=== PATIENT | female | born 1930 | race Caucasian/White ===

== ENCOUNTER 2016-06-28 07:21 | Outpatient (CLI) | payer MEDICARE, OTHER | END 2016-06-28 07:22 | disposition home or self-care (01) | DX: E87.6 Hypokalemia (principal); R25.2 Cramp and spasm ==

== ENCOUNTER 2016-07-23 10:55 | Outpatient (CLI) | payer MEDICARE, OTHER | END 2016-07-23 10:56 | DX: N39.0 Urinary tract infection, site not specified (principal) ==

== ENCOUNTER 2016-12-04 08:00 | Outpatient (CLI) | payer MEDICARE, OTHER | END 2016-12-04 08:01 | disposition home or self-care (01) | LOC: LAB.WCP 08:00 | PROVIDERS: ATTEND Physician Assistant Medical | DX: N39.0 Urinary tract infection, site not specified (principal) | CPT/HCPCS: 87086 ==

== ENCOUNTER 2017-04-28 08:00 | Outpatient (CLI) | payer MEDICARE, OTHER | END 2017-04-28 08:01 | disposition home or self-care (01) | LOC: LAB.R 08:00 | PROVIDERS: ATTEND Physician Assistant Medical | DX: N39.0 Urinary tract infection, site not specified (principal) | CPT/HCPCS: 87086 ==

== ENCOUNTER 2017-05-09 09:30 | Outpatient (CLI) | payer MEDICARE, OTHER | END 2017-05-09 09:31 | disposition home or self-care (01) | LOC: LAB.WCP 09:30 | PROVIDERS: ATTEND Family Medicine | DX: N39.0 Urinary tract infection, site not specified (principal) | CPT/HCPCS: 87086 ==

== ENCOUNTER 2017-05-19 08:00 | Outpatient (CLI) | payer MEDICARE, OTHER | END 2017-05-19 08:01 | disposition home or self-care (01) | LOC: LAB.R 08:00 | PROVIDERS: ATTEND Physician Assistant Medical | DX: N39.0 Urinary tract infection, site not specified (principal) | CPT/HCPCS: 87086 ==

== ENCOUNTER 2017-05-28 08:00 | Outpatient (CLI) | payer MEDICARE, OTHER | END 2017-05-28 08:01 | LOC: LAB.R 08:00 | PROVIDERS: ATTEND Physician Assistant Medical | DX: N39.0 Urinary tract infection, site not specified (principal) | CPT/HCPCS: 87086 ==

== ENCOUNTER 2017-06-09 07:39 | Outpatient (CLI) | payer MEDICARE, OTHER ==
[2017-06-09 12:41] LABS: EOSINOPHILS # (AUTO) 0.1 10^3/uL (0.0-0.7); MONOCYTES # (AUTO) 0.3 10^3/uL (0.0-1.0); NEUTROPHILS # (AUTO) 2.9 10^3/uL (1.5-6.6); PLT - PLATELET COUNT 234 10^3/uL (130-450); WHITE BLOOD COUNT 5.8 x10^3/uL (4.8-10.8)
[2017-06-09 12:50] LABS: BASOPHILS # (AUTO) 0.2 10^3/uL (0.0-0.1); BASOPHILS % (AUTO) 3.1 %; HGB - HEMOGLOBIN 13.9 g/dL (12.0-16.0); LYMPHOCYTES # (AUTO) 2.3 10^3/uL (1.5-3.5); LYMPHOCYTES % (AUTO) 39.5 %; MEAN CORPUSCULAR HEMOGLOBIN 26.8 pg (27.0-31.0); MEAN CORPUSCULAR HGB CONC 35.6 g/dL (32.0-36.0); MEAN CORPUSCULAR VOLUME 75.1 fL (81.0-99.0); MEAN PLATELET VOLUME 7.4 fL (7.9-10.8); MONOCYTES % (AUTO) 5.2 %; NEUTROPHILS % (AUTO) 50.2 %; RED BLOOD COUNT 5.21 10^6/uL (4.20-5.40); RED CELL DISTRIBUTION WIDTH 16.1 % (12.0-15.0)
[2017-06-09 13:04] LABS: ALBUMIN 4.5 g/dL (3.2-5.5); ALBUMIN/GLOBULIN RATIO 1.6 (1.0-2.2); ALKALINE PHOSPHATASE 90 IU/L (42-121); ALT ALANINE AMINOTRANSFERASE 20 IU/L (10-60); AST ASPARTATE AMINOTRANSFERASE 27 IU/L (10-42); BILIRUBIN,TOTAL 0.6 mg/dL (0.2-1.0); BUN - BLOOD UREA NITROGEN 15 mg/dL (6-20); CALCIUM 9.5 mg/dL (8.5-10.3); CARBON DIOXIDE - CO2 27 mmol/L (21-32); CHLORIDE 106 mmol/L (101-111); CHOL/HDL RATIO 3.5 (<4.4); CHOLESTEROL 203 mg/dL; CREATININE 0.7 mg/dL (0.4-1.0); GFR - MDRD 79 (>89); GLUCOSE 108 mg/dL (70-100); HDL CHOLESTEROL 58 mg/dL; LDL CHOLESTEROL,CALCULATED 122 mg/dL; LDL/HDL RATIO 2.1 (<4.4); SODIUM 140 mmol/L (135-145); TOTAL PROTEIN 7.3 g/dL (6.7-8.2); VLDL CHOLESTEROL 23 mg/dL
== END 2017-06-09 07:40 ==
LOC: LAB.WCP 07:39
PROVIDERS: ATTEND Family Medicine
DX: E87.6 Hypokalemia (principal); I73.9 Peripheral vascular disease, unspecified; K21.9 Gastro-esophageal reflux disease without esophagitis; I10 Essential (primary) hypertension; Z79.899 Other long term (current) drug therapy
CPT/HCPCS: 36415; 80053; 80061; 83721; 84443; 85025

== ENCOUNTER 2017-06-25 16:37 | Outpatient (CLI) | payer MEDICARE, OTHER | END 2017-06-25 16:38 | disposition home or self-care (01) | LOC: LAB.R 16:37 | PROVIDERS: ATTEND Physician Assistant Medical | DX: N39.0 Urinary tract infection, site not specified (principal) | CPT/HCPCS: 87086 ==

== ENCOUNTER 2017-07-31 06:37 | Outpatient (CLI) | payer MEDICARE, OTHER | END 2017-07-31 06:38 | disposition home or self-care (01) | LOC: LAB.R 06:37 | PROVIDERS: ATTEND Physician Assistant Medical | DX: N39.0 Urinary tract infection, site not specified (principal) | CPT/HCPCS: 87086 ==

== ENCOUNTER 2017-08-11 08:32 | Outpatient (CLI) | payer MEDICARE, OTHER ==
[2017-08-11 12:39] LABS: CALCIUM 9.2 mg/dL (8.5-10.3); CREATININE 0.7 mg/dL (0.4-1.0)
== END 2017-08-11 08:33 | disposition home or self-care (01) ==
LOC: LAB.WCP 08:32
PROVIDERS: ATTEND Physician Assistant Medical
DX: E87.6 Hypokalemia (principal)
CPT/HCPCS: 36415; 80048

== ENCOUNTER 2017-09-14 11:12 | Emergency (ER) | payer MEDICARE, OTHER ==
[2017-09-14 12:35] LABS: HGB - HEMOGLOBIN 13.4 g/dL (12.0-16.0); MEAN CORPUSCULAR HEMOGLOBIN 27.2 pg (27.0-31.0); MEAN PLATELET VOLUME 7.8 fL (7.9-10.8); RED BLOOD COUNT 4.92 10^6/uL (4.20-5.40); RED CELL DISTRIBUTION WIDTH 15.3 % (12.0-15.0); WHITE BLOOD COUNT 6.5 x10^3/uL (4.8-10.8)
[2017-09-14 12:42] LABS: INR 1.2 (0.8-1.2)
[2017-09-14 12:53] LABS: ALBUMIN 3.9 g/dL (3.2-5.5); ALBUMIN/GLOBULIN RATIO 1.3 (1.0-2.2); BILIRUBIN,TOTAL 0.8 mg/dL (0.2-1.0); CREATININE 0.6 mg/dL (0.4-1.0); TOTAL PROTEIN 6.8 g/dL (6.7-8.2)
--- NOTE | 2017-09-14 13:28 | ED Physician Documentation ---
PD HPI GI BLEED - Stated complaint Stated Complaint: RECTAL BLEED - Chief complaint Chief Complaint: Abd Pain - History obtained from History obtained from: Patient - History of Present Illness Timing - onset: How many days ago (10) Timing - duration: Days (10) Timing - details: Abrupt onset, Still present Associated symptoms: Black/tarry stool (some bloody tint to the diarrhea - having 4-6 watery movements daily.), Diarrhea. No: Vomiting, Fever, Dizzy, Near syncope / syncope Contributing factors: Bad food (she had salad at a restaurant the day prior and feels it was related to that. She and believe it is likely e.coli.). No : Sick contact Improved by: BM Worsened by: Eating Similar symptoms before: Has not had sx before Recently seen: Not recently seen Review of Systems Constitutional: reports: Myalgias. denies: Fever, Chills Nose: denies: Rhinorrhea / runny nose, Congestion Throat: denies: Sore throat Respiratory: denies: Cough GI: reports: Abdominal Pain, Nausea, Diarrhea, Bloody / black stool. denies: Abdominal Swelling, Vomiting, Constipation : denies: Dysuria, Frequency Neurologic: reports: Generalized weakness. 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: Hysterectomy, Oophrectomy HEENT: Tonsil/Adenoidectomy - Present Medications Home Medications: Ambulatory Orders Medication Instructions Recorded Confirmed Diphenoxylate/Atropine [Lomotil] 1 each PO QID PRN #15 tablet 09/14/17 Metronidazole [Flagyl] 500 mg PO BID #14 tablet 09/14/17 Ondansetron Odt [Zofran] 4 mg TL Q6H PRN #15 tablet 09/14/17 Sulfamethox/Trimeth 800/160 1 each PO BID #14 tablet 09/14/17 [Bactrim Ds 800/160] - Allergies Allergies/Adverse Reactions: Allergies Allergy/AdvReac Type Severity Reaction Status Date / Time No Known Drug Allergies Allergy Verified 09/14/17 11:52 - Social History Does the pt smoke?: No Smoking Status: Never smoker Does the pt drink ETOH?: No Substance Use and Type: Marijuana PD ED PE NORMAL - Vitals Vital signs reviewed: Yes - General General: Alert and oriented X 3, No acute distress, Well developed/nourished - HEENT HEENT: Moist mucous membranes, Pharynx benign - Neck Neck: Supple, no meningeal sign, No adenopathy - Cardiac Cardiac: RRR, No murmur - Respiratory Respiratory: No respiratory distress, Clear bilaterally - Abdomen Abdomen: Normal bowel sounds, Soft, Non distended, No organomegaly, Other ( tender left lower abd without guarding nor percussion tenderness. ) - Female Female : Deferred - Rectal Rectal: Deferred - Back Back: No CVA TTP - Derm Derm: Normal color, Warm and dry - Extremities Extremities: No deformity, No tenderness to palpate, Normal ROM s pain, No edema , No calf tenderness / cord - Neuro Neuro: Alert and oriented X 3, No motor deficit, Normal speech Results - Vitals Vitals: Oxygen O2 Source Room air - Labs Labs: Laboratory Tests 09/14/17 09/14/17 09/14/17 11:51 12:20 12:20 WBC 6.5 RBC 4.92 Hgb 13.4 Hct 39.4 MCV 80.0 L MCH 27.2 MCHC 34.0 RDW 15.3 H Plt Count 205 MPV 7.8 L PT 13.0 H INR 1.2 APTT 25.3 Sodium Potassium Chloride Carbon Dioxide Anion Gap BUN Creatinine Estimated GFR (MDRD) Glucose Calcium Total Bilirubin AST ALT Alkaline Phosphatase Total Protein Albumin Globulin Albumin/Globulin Ratio Lipase Blood Type O POSITIVE Antibody Screen NEGATIVE 09/14/17 12:20 WBC RBC Hgb Hct MCV MCH MCHC RDW Plt Count MPV PT INR APTT Sodium 137 Potassium 3.6 Chloride 103 Carbon Dioxide 24 Anion Gap 10.0 BUN 14 Creatinine 0.6 Estimated GFR (MDRD) 95 Glucose 98 Calcium 9.0 Total Bilirubin 0.8 AST 20 ALT 16 Alkaline Phosphatase 99 Total Protein 6.8 Albumin 3.9 Globulin 2.9 Albumin/Globulin Ratio 1.3 Lipase 19 L Blood Type Antibody Screen - Rads (name of study) abd CT with contrast Radiology: Prelim report reviewed (colitis vs. diverticulitis, uncomplicated ( distorted view due to hip prosthesis). ) PD MEDICAL DECISION MAKING - ED course Complexity details: reviewed results (she and were sure it was likely e.coli from a salad she ate. She does have diverticulitis on CT. Could have initiated with food poisoning, but she did not have BM here so not culture source and the diverticulitis would warrant abx coverage anyway, as I explained to them. ), re-evaluated patient (she is feeling well and wants to go home, is in a hurry to get discharged in fact. ), considered differential, d/w patient Departure - Departure Disposition: Home, Self Care Clinical Impression: Bloody diarrhea Diverticulitis large intestine Qualifiers: Diverticulitis bleeding: with bleeding Diverticulitis complication: without perforation or abscess Qualified Code(s): K57.33 - Diverticulitis of large intestine without perforation or abscess with bleeding Condition: Stable Record reviewed to determine appropriate education?: Yes Instructions: ED Diverticulitis Follow-Up: Trena Gunn PA-C [Primary Care Provider] - Prescriptions: Diphenoxylate/Atropine [Lomotil] 1 each PO QID PRN #15 tablet PRN Reason: Diarrhea Metronidazole [Flagyl] 500 mg PO BID #14 tablet Ondansetron Odt [Zofran] 4 mg TL Q6H PRN #15 tablet PRN Reason: Nausea / Vomiting Sulfamethox/Trimeth 800/160 [Bactrim Ds 800/160] 1 each PO BID #14 tablet Comments: The CT report does show a focal area of infection called diverticulitis. As such we will be treating with antibiotics and so would be unlikely to also be a food poisoning. We do not need a stool sample since we will be gone with antibiotics anyway. Bactrim and Flagyl antibiotics twice daily for a week. Use Tylenol or ibuprofen if needed for pains. Ondansetron if needed for nausea. Lomotil if needed for diarrhea. Recheck if not improving over the next 2-3 days. Return sooner if worsening. Discharge Date/Time: 09/14/17 16:43
[2017-09-14] MEDS ORDERED: SODIUM CHLORIDE 0.9% 1,000 ML IV ONE (14:00)
[2017-09-14] MEDS ORDERED: ONDANSETRON 4 MG/2 ML VIAL IVP STA (14:01)
[2017-09-14] MEDS ORDERED: MORPHINE 10 MG/ML VIAL IVP STA (14:01)
[2017-09-14] MEDS ORDERED: DIPHENOX/ATROPINE 2.5/0.025 MG TABLET PO STA (14:02)
[2017-09-14] MEDS ORDERED: IOPAMIDOL-300 100 ML VIAL IVP ONE (14:09)
[2017-09-14] MEDS ORDERED: IOPAMIDOL-300 100 ML VIAL ONE (14:17)
--- NOTE | 2017-09-14 15:00 | CT Preliminary Report ---
Exam: CT ABDOMEN/PELVIS W/ IMPRESSION: 1. Thickening and mild pericolonic edema suggested although likely present involving the mid-lower si gmoid colon largely obscured by artifact created by the left hip arthroplasty which may represent a s mall focus of inflammatory/infectious colitis versus diverticulitis. No pericolonic abscess or free a ir. No other areas of colonic or small bowel wall thickening. No bowel obstruction. 2. Status post cholecystectomy. 3. Small hiatal hernia. [facility] SITE ID: [id number]
--- NOTE | 2017-09-14 16:20 | CT Report ---
EXAM: CT ABDOMEN AND PELVIS EXAM DATE: 09/14/2017 02:36 PM. CLINICAL HISTORY: Lower abd pain and diarrhea/bloody stool. COMPARISONS: 09/21/2013. TECHNIQUE: Routine helical CT imaging was performed through the abdomen and pelvis. IV contrast: 100 mL of Isovue. Enteric contrast: No. Reconstructions: Coronal and sagittal. In accordance with CT protocol optimization, one or more of the following dose reduction techniques w ere utilized for this exam: automated exposure control, adjustment of mA and/or KV based on patient s ize, or use of iterative reconstructive technique. FINDINGS: Lung Bases: There is lingular scar/atelectasis also in the right middle lobe. Included portions of th e heart are unremarkable. Small to moderate hiatal hernia. Liver: Normal. No masses. Gallbladder/Bile Ducts: Status post cholecystectomy. Common bile duct measures 7-8 mm. Spleen: Normal. Pancreas: Normal. Adrenal Glands: Normal. Kidneys: Kidneys enhance symmetrically. Midpole left renal low-attenuation lesion too small to charac terize also present in the lateral mid right kidney. No hydronephrosis or nephrolithiasis. Peritoneal Cavity/Bowel: Stomach is nondistended. Small bowel is unremarkable without wall thickening . Fatty umbilical hernia. Small volume of stool in the colon. Portions of the distal colon and sigmoi d colon are obscured by artifact created by the left hip arthroplasty although there appears to be mi ld thickening and pericolonic edema involving the mid-lower sigmoid colon. No free air. No intra-abdo coleen fluid collections. Appendix not distinctly visualized. No right lower quadrant or pericecal inf lammatory changes. Pelvic Organs: Urinary bladder is mildly distended although partly obscured. No adnexal masses. No pe lvic adenopathy. No pelvic free fluid. Vasculature: Vascular calcifications. No aneurysm. Bones: Degenerative changes of the lower thoracic and lumbar spine. Grade 1 anterolisthesis of L3 on L4 and L4 on L5. Lumbar facet arthropathy. Dextroscoliosis of lumbar spine. Degenerative changes of t he right hip joint. Left total hip arthroplasty creating artifact. Other: None. IMPRESSION: 1. Thickening and mild pericolonic edema suggested although likely present involving the mid-lower si gmoid colon limited in detail and partially obscured by artifact created by the left hip arthroplasty . Findings may represent a small focus of inflammatory/infectious colitis versus diverticulitis. No p ericolonic abscess or free air. No other areas of colonic or small bowel wall thickening. No bowel ob struction. 2. Status post cholecystectomy. 3. Small hiatal hernia. [facility] Referring Provider Line: [phone] SITE ID: [id number]
[2017-09-14] MEDS ORDERED: metroNIDAZOLE 250 MG TABLET PO STA (16:22)
[2017-09-14] MEDS ORDERED: SULFAMETH/TRIMETH DS 800/160 MG TABLET PO STA (16:22)
[2017-09-14 17:49] VITALS: BP 162/82
== END 2017-09-14 16:43 | disposition home or self-care (01) ==
LOC: ED 11:12
DX: K57.33 Diverticulitis of large intestine without perforation or abscess with bleeding (principal); I10 Essential (primary) hypertension; Z96.649 Presence of unspecified artificial hip joint
CPT/HCPCS: 36415; 74177; 80053; 83690; 85027; 85610; 85730; 86850; 86900; 86901; 96361; 96374; 99284; A9270; Q9967

== ENCOUNTER 2017-10-02 02:41 | Outpatient (CLI) | payer MEDICARE, OTHER | END 2017-10-02 02:42 | disposition home or self-care (01) | LOC: LAB.WCP 02:41 | PROVIDERS: ATTEND Family Medicine | DX: R30.0 Dysuria (principal) | CPT/HCPCS: 87086; 87181 ==

== ENCOUNTER 2017-10-28 08:00 | Outpatient (CLI) | payer MEDICARE, OTHER ==
[2017-10-28 12:24] LABS: BILIRUBIN,URINE NEGATIVE (NEGATIVE); GLUCOSE, URINE (UA) NEGATIVE (NEGATIVE); KETONES,URINE (UA) NEGATIVE (NEGATIVE); LEUKOCYTE ESTERASE, URINE NEGATIVE (NEGATIVE); NITRITE,URINE NEGATIVE (NEGATIVE); OCCULT BLOOD,URINE NEGATIVE (NEGATIVE); PROTEIN,URINE NEGATIVE (NEGATIVE); UROBILINOGEN,URINE 0.2 (NORMAL) E.U./dL (NORMAL)
[2017-10-28 12:29] LABS: CLARITY,URINE CLEAR (CLEAR)
[2017-10-28 12:58] LABS: RBC,URINE 0-5 /HPF (0-5); SQUAMOUS EPITHELIAL CELL,UR MANY Squamous (<= Few)
[2017-10-28 12:59] LABS: AMORPHOUS SEDIMENT,UR Rare /LPF; BACTERIA,URINE Few /HPF (None Seen); CASTS, URINE 0-2 Granular Casts /LPF; EPITHELIAL CELLS,UR FEW Transitional /HPF (<= Few)
== END 2017-10-28 08:01 | disposition home or self-care (01) ==
LOC: LAB.WCP 08:00
PROVIDERS: ATTEND Family Medicine
DX: R30.0 Dysuria (principal)
CPT/HCPCS: 81001; 87086

== ENCOUNTER 2017-12-04 13:05 | Outpatient (CLI) | payer MEDICARE, OTHER ==
--- NOTE | 2017-12-04 14:19 | CT Report ---
Procedure Date: 12/04/2017 Accession Number: [id number] / [id number] Procedure: CT - Chest W/O CPT Code: FULL RESULT: EXAM: Chest W/O DATE: 12/04/2017 1:36 PM CLINICAL HISTORY: COUGH, DYSPNEA ON EXERTION COMPARISON: Chest radiograph 10/28/2017. TECHNIQUE: Routine helical CT imaging was performed through the chest. IV contrast: None. Reconstructions: Coronal and sagittal. In accordance with CT protocol optimization, one or more of the following dose reduction techniques were utilized for this exam: automated exposure control, adjustment of mA and/or KV based on patient size, or use of iterative reconstructive technique. FINDINGS: Lungs/Pleura: No suspicious nodules, bronchial thickening, consolidation, or edema. Pulmonary vasculature is normal. No pericardial or pleural effusion. No pneumothorax. Mediastinum: Normal. No adenopathy or masses. The heart and great vessels are unremarkable with the exception of some aortic calcifications and valvular calcifications. Bones: Multilevel degenerative disc disease and mild loss of vertebral body height in the midthoracic spine. Visualized Abdomen: Sliding hiatal hernia, status post cholecystectomy. IMPRESSION: No pulmonary findings to explain the patient's shortness of breath and cough. Question cardiogenic etiology. [facility]
== END 2017-12-04 13:06 | disposition home or self-care (01) ==
LOC: DI 13:05
PROVIDERS: ATTEND Family Medicine
DX: R06.09 Other forms of dyspnea (principal); R05 Cough
CPT/HCPCS: 71250; 93306

== ENCOUNTER 2018-04-07 08:00 | Outpatient (CLI) | payer MEDICARE, OTHER ==
[2018-04-07 19:27] LABS: BILIRUBIN,URINE NEGATIVE (NEGATIVE); GLUCOSE, URINE (UA) NEGATIVE (NEGATIVE); KETONES,URINE (UA) NEGATIVE (NEGATIVE); LEUKOCYTE ESTERASE, URINE NEGATIVE (NEGATIVE); NITRITE,URINE NEGATIVE (NEGATIVE); OCCULT BLOOD,URINE NEGATIVE (NEGATIVE); PROTEIN,URINE NEGATIVE (NEGATIVE); UROBILINOGEN,URINE 0.2 (NORMAL) E.U./dL (NORMAL)
[2018-04-07 19:28] LABS: CLARITY,URINE SL. CLOUDY (CLEAR)
[2018-04-07 20:05] LABS: BACTERIA,URINE None Seen /HPF (None Seen); RBC,URINE None Seen /HPF (0-5); SQUAMOUS EPITHELIAL CELL,UR FEW Squamous (<= Few)
[2018-04-07 20:06] LABS: AMORPHOUS SEDIMENT,UR Few /LPF; CRYSTALS,URINE 3-5 Calcium Oxalate /LPF
== END 2018-04-07 08:01 | disposition home or self-care (01) ==
LOC: LAB.WCP 08:00
PROVIDERS: ATTEND Physician Assistant Medical
DX: N39.0 Urinary tract infection, site not specified (principal)
CPT/HCPCS: 81001; 87086

== ENCOUNTER 2018-06-30 09:40 | Outpatient (CLI) | payer MEDICARE, OTHER ==
--- NOTE | 2018-06-30 15:59 | XRAY Report ---
Reason: KNEE PAIN, RT Procedure Date: 06/30/2018 Accession Number: [id number] / [id number] Procedure: WCP - Knee 2 View RT CPT Code: FULL RESULT: EXAM: RIGHT KNEE RADIOGRAPHY EXAM DATE: 06/30/2018 09:50 AM. CLINICAL HISTORY: Right knee pain. COMPARISON: Right knee radiographs from 10/26/2013. TECHNIQUE: 3 views. FINDINGS: Bones: No acute fracture. Joints: No dislocation or subluxation. There is severe joint space narrowing in the medial compartment with osteophytic spurring. Mild spurring also present in the lateral and patellofemoral compartments. Small joint effusion. Soft Tissues: Atherosclerotic calcification demonstrated in the distal femoral and popliteal arteries. IMPRESSION: 1. Tricompartmental DJD, severe in the medial compartment. This has progressed since the prior examination. 2. Small joint effusion. [facility]
== END 2018-06-30 09:41 | disposition home or self-care (01) ==
LOC: DI.WCP 09:40
PROVIDERS: ATTEND Physician Assistant Medical
DX: M17.11 Unilateral primary osteoarthritis, right knee (principal); M25.461 Effusion, right knee

== ENCOUNTER 2018-08-26 15:32 | Outpatient (CLI) | payer MEDICARE, OTHER | END 2018-08-26 15:33 | disposition critical access hospital (66) | LOC: EMS 15:32 | PROVIDERS: ATTEND Surgery | DX: R53.1 Weakness (principal) | CPT/HCPCS: A0425; A0429 ==

== ENCOUNTER 2018-08-26 15:58 | Observation (INO) | payer MEDICARE, OTHER ==
--- NOTE | 2018-08-26 16:10 | ED Physician Documentation ---
PD HPI FOCAL NEURO - Stated complaint Stated Complaint: WEAKNESS - Chief complaint Chief Complaint: Neuro - History obtained from History obtained from: Patient, EMS - History of Present Illness Timing - onset: Yesterday (Yesterday afternoon after leaving [facility] she developed pretty significant headache near the top of her head. It only lasted about 15 minutes, but subsequent to that just has felt weak all over. She usually ambulates without any assistive devices but requires a cane today because she feels unsteady and generally weak. The headache is gone. She does have a history of hypertension, no other chronic medical issues.) Review of Systems Ten Systems: 10 systems reviewed and negative Constitutional: reports: Fatigue. 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 ODD: Hysterectomy, Oophrectomy HEENT: Tonsil/Adenoidectomy - Present Medications Home Medications: Ambulatory Orders Medication Instructions Recorded Confirmed ALPRAZolam [Alprazolam] 0.5 mg PO BID PRN 08/26/18 08/26/18 Albuterol Sulfate [Proair 2 puffs INH PRN PRN 08/26/18 08/26/18 Respiclick] Amlodipine Besylate 5 mg PO DAILY 08/26/18 08/26/18 Nitrofurantoin Macrocrystal 100 mg PO DAILY PRN 08/26/18 08/26/18 [Nitrofurantoin] - Allergies Allergies/Adverse Reactions: Allergies Allergy/AdvReac Type Severity Reaction Status Date / Time No Known Drug Allergies Allergy Verified 08/26/18 16:05 - Social History Does the pt smoke?: No Smoking Status: Never smoker Does the pt drink ETOH?: No - Family History Family history: reports: Non contributory PD ED PE NORMAL - Vitals Vital signs reviewed: Yes - General General: Alert and oriented X 3, No acute distress, Other (Slightly somnolent) - HEENT HEENT: Other (She has a lot of horizontal nystagmus, Small pupils) - Neck Neck: Supple, no meningeal sign, No bony TTP - Cardiac Cardiac: RRR, No murmur - Respiratory Respiratory: No respiratory distress, Clear bilaterally - Abdomen Abdomen: Normal bowel sounds, Soft, Non tender - Neuro Neuro: Alert and oriented X 3, director of 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 2-12 intact Eye Opening: Spontaneous Motor: Obeys Commands Verbal: Oriented GCS Score: 15 - Psych Psych: Normal mood, Normal affect NIHSS - Time Time: 16:05 - Level of Consciousness Level of consciousness: (0) Alert, Keenly responsive LOC Questions: (0) Answers both Q's correct LOC Commands: (0) Performs both correctly - Gaze Best Gaze: (0) Normal - Visual Visual: (0) No loss - Facial Palsy Facial Palsy: (0) Normal, symmetrical movement - Motor Arms (both separate) Motor Arm (right): (2) Some effort against gravity Motor Arm (left): (1) Drift - Motor Legs (both separate) Motor Leg (right): (1) Drift Motor Leg (left): (2) Some effort against gravity - Limb Ataxia Limb Ataxia: (0) Absent - Sensory Sensory: (1) [id number] loss (She says that her right lower extremity feels stronger than the left lower extremity) - Best Language Best Language: (0) No aphasia - Dysarthria Dysarthria: (0) Normal - Extinction and Inattention (formally neg Extinction and inattention: (0) No abnormality - Total Score/Results Total Score/Result: 7 Results - Vitals Vitals: Vital Signs - 24 hr 08/26/18 08/26/18 08/26/18 15:59 16:39 18:17 Temperature 36.3 C L Heart Rate 70 80 61 Respiratory 20 24 23 Rate Blood Pressure 187/93 H 172/115 H 157/70 H O2 Saturation 100 97 98 Oxygen O2 Source Room air - EKG (time done) 1610 Rate: Rate (enter#) (61) Rhythm: NSR Intervals: LBBB Computer interpretation: Agree with computer - Labs Labs: Laboratory Tests 08/26/18 08/26/18 08/26/18 16:19 16:24 16:24 WBC 5.8 RBC 4.81 Hgb 13.6 Hct 39.8 MCV 82.6 MCH 28.3 MCHC 34.3 RDW 14.6 Plt Count 220 MPV 7.6 L Neut # (Auto) 2.4 Lymph # (Auto) 2.7 [place] # (Auto) 0.4 Eos # (Auto) 0.2 Baso # (Auto) 0.1 Absolute Nucleated RBC 0.00 Nucleated RBC % 0.0 PT INR Sodium 139 Potassium 3.0 L Chloride 103 Carbon Dioxide 27 Anion Gap 9.0 BUN 10 Creatinine 0.5 Estimated GFR (MDRD) 117 Glucose 98 Calcium 9.4 Total Bilirubin 0.5 AST 19 ALT 15 Alkaline Phosphatase 113 Troponin I Total Protein 7.4 Albumin 4.1 Globulin 3.3 Albumin/Globulin Ratio 1.2 Lipase 32 Urine Color YELLOW Urine Clarity CLEAR Urine pH 7.0 Ur Specific Hale <=1.005 Urine Protein NEGATIVE Urine Glucose (UA) NEGATIVE Urine Ketones NEGATIVE Urine Occult Blood NEGATIVE Urine Nitrite NEGATIVE Urine Bilirubin NEGATIVE Urine Urobilinogen 0.2 (NORMAL) Ur Leukocyte Esterase TRACE H Urine RBC None Seen Urine WBC 4-5 Ur Epithelial Cells MOD Transitional H Ur Squamous Epith Cells FEW Squamous Urine Bacteria None Seen Ur Microscopic Review INDICATED Urine Culture Comments INDICATED Ethyl Alcohol < 5.0 08/26/18 08/26/18 16:24 16:24 WBC RBC Hgb Hct MCV MCH MCHC RDW Plt Count MPV Neut # (Auto) Lymph # (Auto) [place] # (Auto) Eos # (Auto) Baso # (Auto) Absolute Nucleated RBC Nucleated RBC % PT 11.9 INR 1.1 Sodium Potassium Chloride Carbon Dioxide Anion Gap BUN Creatinine Estimated GFR (MDRD) Glucose Calcium Total Bilirubin AST ALT Alkaline Phosphatase Troponin I < 0.04 Total Protein Albumin Globulin Albumin/Globulin Ratio Lipase Urine Color Urine Clarity Urine pH Ur Specific Hale Urine Protein Urine Glucose (UA) Urine Ketones Urine Occult Blood Urine Nitrite Urine Bilirubin Urine Urobilinogen Ur Leukocyte Esterase Urine RBC Urine WBC Ur Epithelial Cells Ur Squamous Epith Cells Urine Bacteria Ur Microscopic Review Urine Culture Comments Ethyl Alcohol PD MEDICAL DECISION MAKING - ED course ED course: Note to the neurologic examination, the nurse reported to me that she felt the patient was probably exaggerating her symptoms, she was able to get up and walk to the commode without any issues. That said she has a very atypical neurologic exam after a brief headache yesterday. There is no evidence of blood on the CT. No evidence of new stroke either. She will be placed in observation for further evaluation and treatment. Spoke with Dr. Alvarado for this at 6 PM. Departure - Departure Disposition: ED Place in Observation Clinical Impression: Stroke-like symptoms Condition: Stable Discharge Date/Time: 08/26/18 19:06
[2018-08-26 16:31] LABS: BILIRUBIN,URINE NEGATIVE (NEGATIVE); GLUCOSE, URINE (UA) NEGATIVE (NEGATIVE); KETONES,URINE (UA) NEGATIVE (NEGATIVE); LEUKOCYTE ESTERASE, URINE TRACE (NEGATIVE); NITRITE,URINE NEGATIVE (NEGATIVE); OCCULT BLOOD,URINE NEGATIVE (NEGATIVE); PROTEIN,URINE NEGATIVE (NEGATIVE); UROBILINOGEN,URINE 0.2 (NORMAL) E.U./dL (NORMAL)
[2018-08-26 16:32] LABS: BASOPHILS # (AUTO) 0.1 10^3/uL (0.0-0.1); BASOPHILS % (AUTO) 1.2 %; EOSINOPHILS # (AUTO) 0.2 10^3/uL (0.0-0.7); HGB - HEMOGLOBIN 13.6 g/dL (12.0-16.0); LYMPHOCYTES # (AUTO) 2.7 10^3/uL (1.5-3.5); LYMPHOCYTES % (AUTO) 47.2 %; MEAN CORPUSCULAR HEMOGLOBIN 28.3 pg (27.0-31.0); MEAN CORPUSCULAR HGB CONC 34.3 g/dL (32.0-36.0); MEAN CORPUSCULAR VOLUME 82.6 fL (81.0-99.0); MEAN PLATELET VOLUME 7.6 fL (7.9-10.8); MONOCYTES # (AUTO) 0.4 10^3/uL (0.0-1.0); MONOCYTES % (AUTO) 7.7 %; NEUTROPHILS # (AUTO) 2.4 10^3/uL (1.5-6.6); NEUTROPHILS % (AUTO) 40.9 %; PLT - PLATELET COUNT 220 10^3/uL (130-450); RED BLOOD COUNT 4.81 10^6/uL (4.20-5.40); RED CELL DISTRIBUTION WIDTH 14.6 % (12.0-15.0); WHITE BLOOD COUNT 5.8 x10^3/uL (4.8-10.8)
[2018-08-26 16:34] LABS: CLARITY,URINE CLEAR (CLEAR)
[2018-08-26 16:37] LABS: INR 1.1 (0.8-1.2); PT - PROTHROMBIN TIME 11.9 secs (9.9-12.6)
[2018-08-26 16:43] LABS: BACTERIA,URINE None Seen /HPF (None Seen); EPITHELIAL CELLS,UR MOD Transitional /HPF (<= Few); RBC,URINE None Seen /HPF (0-5); SQUAMOUS EPITHELIAL CELL,UR FEW Squamous (<= Few)
[2018-08-26 16:44] LABS: ALBUMIN 4.1 g/dL (3.2-5.5); ALBUMIN/GLOBULIN RATIO 1.2 (1.0-2.2); ALKALINE PHOSPHATASE 113 IU/L (42-121); ALT ALANINE AMINOTRANSFERASE 15 IU/L (10-60); AST ASPARTATE AMINOTRANSFERASE 19 IU/L (10-42); BILIRUBIN,TOTAL 0.5 mg/dL (0.2-1.0); BUN - BLOOD UREA NITROGEN 10 mg/dL (6-20); CALCIUM 9.4 mg/dL (8.5-10.3); CARBON DIOXIDE - CO2 27 mmol/L (21-32); CHLORIDE 103 mmol/L (101-111); CREATININE 0.5 mg/dL (0.4-1.0); GFR - MDRD 117 (>89); GLUCOSE 98 mg/dL (70-100); LIPASE 32 U/L (22-51); SODIUM 139 mmol/L (135-145); TOTAL PROTEIN 7.4 g/dL (6.7-8.2)
--- NOTE | 2018-08-26 16:45 | CT Report ---
Reason: headache, weak Procedure Date: 08/26/2018 Accession Number: [id number] / [id number] Procedure: CT - HEAD WO CPT Code: FULL RESULT: EXAM: CT HEAD EXAM DATE: 08/26/2018 04:37 PM. CLINICAL HISTORY: Headache, weak. COMPARISON: None. TECHNIQUE: Multiaxial CT images were obtained from the foramen magnum to the vertex. Reformats: Sagittal and coronal. IV contrast: None. In accordance with CT protocol optimization, one or more of the following dose reduction techniques were utilized for this exam: automated exposure control, adjustment of mA and/or KV based on patient size, or use of iterative reconstructive technique. FINDINGS: Parenchyma: No intraparenchymal hemorrhage. No evidence of mass, midline shift, or CT findings of infarction. Lindquist-white differentiation is distinct. Extraaxial Spaces: Normal for age. No subdural or epidural collections identified. Ventricles: Normal in size and position. Sinuses and Orbits: Mild right sphenoid mucosal thickening. No fluid level. Paranasal sinuses are otherwise unremarkable. Bones: No evidence of fracture or calvarial defect. Other: None. IMPRESSION: 1. Mild right sphenoid sinus mucosal thickening. Sinuses otherwise clear. 2. Otherwise negative examination. No acute intracranial abnormality. [facility]
[2018-08-26] MEDS ORDERED: ACETAMINOPHEN 325 MG TABLET PO PRN (18:19)
[2018-08-26] MEDS ORDERED: ONDANSETRON 4 MG/2 ML VIAL IVP PRN (18:19)
[2018-08-26] MEDS ORDERED: oxyCODONE 5 MG TABLET PO PRN (18:19)
[2018-08-26] MEDS ORDERED: SODIUM CHLORIDE FLUSH 0.9% 10 ML SYRINGE IVP PRN (18:19)
[2018-08-26] MEDS ORDERED: ONDANSETRON ODT 4 MG TABLET TL PRN (18:19)
[2018-08-26] MEDS ORDERED: POTASSIUM CHLORIDE 20 MEQ TABLET PO ONE (18:30)
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
[2018-08-26] MEDS ORDERED: SODIUM CHLORIDE 0.9% 1,000 ML IV SCH (19:00)
[2018-08-26] MEDS: SODIUM CHLORIDE FLUSH 0.9% 10 ML SYRINGE IVP SCH (19:41)
[2018-08-27] MEDS: NYSTATIN POWDER 15 GM TOP SCH ×2 (02:51→09:56)
[2018-08-27 06:32] LABS: CALCIUM 8.8 mg/dL (8.5-10.3); CREATININE 0.6 mg/dL (0.4-1.0); MAGNESIUM 2.1 mg/dL (1.7-2.8); PHOSPHORUS 2.8 mg/dL (2.5-4.6)
[2018-08-27 07:06] LABS: THYROID STIMULATING HORMONE 3.21 uIU/mL (0.34-5.60)
[2018-08-27 07:08] LABS: FREE T4 (FREE THYROXINE) 0.76 ng/dL (0.58-1.64)
[2018-08-27] MEDS ORDERED: amLODIPine 5 MG TABLET PO SCH (09:00)
[2018-08-27] MEDS ORDERED: POLYETHYLENE GLYCOL 3350 17 GM PACKET PO SCH (09:00)
[2018-08-27] MEDS: SODIUM CHLORIDE FLUSH 0.9% 10 ML SYRINGE IVP SCH (09:56)
--- NOTE | 2018-08-27 14:30 | Discharge Plan ---
Discharge Plan Disposition: 01 Home, Self Care Condition: Good Diet: Regular Activity Restrictions: Activity as Tolerated Shower Restrictions: No Driving Restrictions: No Additional Instructions or Follow Up instructions: You were admitted because of sudden weakness. It was generalized. Sometimes it was your arm that was weak. Sometimes it was your legs were weak. It was very frightening to you. You have had extensive workup with many safety officer, neurologist, and other doctors in the last few years. You think you may be having panic attacks. An MRI of the brain was done right before discharge. Final report is pending. Please make sure you see your primary care provider to get the final report. No Smoking: If you smoke, Please STOP! Call for help. Follow-up with: Trena Gunn PA-C [Primary Care Provider] -
[2018-08-27 16:52] VITALS: BP 182/80
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
== END 2018-08-27 17:19 | disposition home or self-care (01) ==
LOC: EDUNIT# → ED 15:58 → OBS 18:19
PROVIDERS: ADMIT Specialist; ATTEND Specialist
DX: R68.89 Other general symptoms and signs (principal); I10 Essential (primary) hypertension; E87.6 Hypokalemia; F41.9 Anxiety disorder, unspecified; I49.9 Cardiac arrhythmia, unspecified; E11.9 Type 2 diabetes mellitus without complications; R06.02 Shortness of breath; R55 Syncope and collapse; R06.00 Dyspnea, unspecified; I44.7 Left bundle-branch block, unspecified; Z87.440 Personal history of urinary (tract) infections
CPT/HCPCS: 36415; 70450; 80048; 80053; 81001; 83690; 83735; 83970; 84100; 84439; 84443; 84484; 85025; 85610; 87086; 93005; 96360; 96361; 99283; 99284; A9270; G0378; 80320; 81003; 82310; 83519; 99285

== ENCOUNTER 2018-09-08 19:42 | Outpatient (CLI) | payer MEDICARE, OTHER ==
--- NOTE | 2018-09-10 09:18 | Ultrasound Report ---
Reason: LOWER EXTREMITY WEAKNESS Procedure Date: 09/08/2018 Accession Number: [id number] / [id number] Procedure: US - Carotid Doppler Complete CPT Code: FULL RESULT: EXAM: BILATERAL CAROTID AND VERTEBRAL ARTERY DUPLEX DOPPLER ULTRASOUND: EXAM DATE: 09/08/2018 08:47 PM CLINICAL HISTORY: LOWER EXTREMITY WEAKNESS. COMPARISON: None. TECHNIQUE: Grayscale imaging, color Doppler, and duplex spectral Doppler were used to evaluate the carotid and vertebral arteries bilaterally. Static images were obtained. FINDINGS: A small amount of calcified plaque is identified in the right and left carotid arteries. Normal antegrade flow is present in bilateral vertebral arteries. VELOCITIES (cm/sec): Right CCA mid: PSV 94 cm/sec CCA dist: PSV 74 cm/sec ICA prox: PSV 50 cm/sec, EDV 15 cm/sec ICA mid: PSV 61 cm/sec, EDV 20 cm/sec ICA dist: PSV 41 cm/sec, EDV 13 cm/sec ECA: PSV 76 cm/sec Vert: PSV 41 cm/sec ICA/CCA: 0.8 Left CCA mid: PSV 70 cm/sec CCA dist: PSV 45 cm/sec ICA prox: PSV 81 cm/sec, EDV 28 cm/sec ICA mid: PSV 57 cm/sec, EDV 18 cm/sec ICA dist: PSV 62 cm/sec, EDV 20 cm/sec ECA: PSV 79 cm/sec Vert: PSV 64 cm/sec ICA/CCA: 1.8 ICA diameter stenosis: Right: <50% by velocity and <70% by NASCET criteria. Left: <50% by velocity and <70% by NASCET criteria. IMPRESSION: 1. Minor bilateral carotid artery plaquing. 2. In the right carotid artery there are no elevated carotid artery velocities to suggest hemodynamically significant stenosis. 3. In the left carotid artery there are no elevated carotid artery velocities to suggest hemodynamically significant stenosis. 4. Normal antegrade flow is present in bilateral vertebral arteries. General Recommendations: Stenosis =50% ICA - Follow-up ultrasound 6-12 months Stenosis <50% ICA - High Risk Patient with plaque - Follow-up ultrasound 1-2 years Normal Study but High Risk Patient - Follow-up ultrasound 3-5 years Management recommendations and diagnostic criteria are based on current IAC endorsed standards in Carotid Artery Stenosis: Grayscale and Doppler Ultrasound Diagnosis. Validated velocity measurements with angiographic measurements and velocity criteria are extrapolated from diameter data as defined by the Society of Radiologists in Ultrasound Consensus Conference Radiology 2003; 229;340-346. RADIA
== END 2018-09-08 19:43 | disposition home or self-care (01) ==
LOC: DI 19:42
PROVIDERS: ATTEND Family Medicine
DX: R29.898 Other symptoms and signs involving the musculoskeletal system (principal)
CPT/HCPCS: 93880

== ENCOUNTER 2018-09-12 08:55 | Outpatient (CLI) | payer MEDICARE, OTHER ==
[~2018-09-12 08:55] MED LIST: ALBUTEROL NEB 2.5 MG/3 ML INH ONE
== END 2018-09-12 08:56 | disposition home or self-care (01) ==
LOC: RT 08:55
PROVIDERS: ATTEND Physician Assistant Medical
DX: R06.09 Other forms of dyspnea (principal)
CPT/HCPCS: 94010; 94729

== ENCOUNTER 2018-09-14 12:03 | Outpatient (CLI) | payer MEDICARE, OTHER ==
[2018-09-14 20:06] LABS: CALCIUM 9.6 mg/dL (8.5-10.3); CREATININE 0.6 mg/dL (0.4-1.0)
== END 2018-09-14 12:04 | disposition home or self-care (01) ==
LOC: LAB.WCP 12:03
PROVIDERS: ATTEND Physician Assistant Medical
DX: E87.6 Hypokalemia (principal)
CPT/HCPCS: 36415; 80048

== ENCOUNTER 2018-09-22 14:59 | Outpatient (CLI) | payer MEDICARE, OTHER ==
--- NOTE | 2018-09-22 17:01 | XRAY Report ---
Reason: LOW BACK PAIN,ACUTE Procedure Date: 09/22/2018 Accession Number: [id number] / [id number] Procedure: WCP - Lumbar Spine 2 View CPT Code: FULL RESULT: EXAM: LUMBOSACRAL SPINE RADIOGRAPHY EXAM DATE: 09/22/2018 03:26 PM. CLINICAL HISTORY: LOW BACK PAIN, ACUTE. COMPARISONS: LUMBAR SPINE 2 VIEW 09/05/2017 3:24 PM. TECHNIQUE: 2 views. FINDINGS: Alignment: There is 6 mm of anterolisthesis of L4 on L5, stable Bones: Five [id number] lumbar vertebral bodies are present. No fractures or bone lesions. Disks: Degenerative disk space narrowing is noted at L3-L4, L4-L5 and L5-S1, similar to prior. Mild disk space osteophytosis is noted at T12-L1. Facets: Degenerative facet arthrosis is noted predominately on the left L3-L5 and bilaterally at L5-S1. Sacroiliac Joints: Unremarkable. Soft Tissues: Normal. The visualized bowel gas pattern is normal. IMPRESSION: Degenerative changes, similar to the prior exam. Stable mild grade 1 anterolisthesis of L4 on L5. RADIA
== END 2018-09-22 15:00 | disposition home or self-care (01) ==
LOC: DI.WCP 14:59
PROVIDERS: ATTEND Physician Assistant Medical
DX: M51.36 Other intervertebral disc degeneration, lumbar region (principal); M47.9 Spondylosis, unspecified; M43.16 Spondylolisthesis, lumbar region; M16.11 Unilateral primary osteoarthritis, right hip; Z96.642 Presence of left artificial hip joint
CPT/HCPCS: 72100

== ENCOUNTER 2018-09-22 15:01 | Outpatient (CLI) | payer MEDICARE, OTHER ==
--- NOTE | 2018-09-22 16:52 | XRAY Report ---
Reason: LOW BACK PAIN,ACUTE Procedure Date: 09/22/2018 Accession Number: [id number] / [id number] Procedure: WCP - Hip w/Pelvis 2-3V RT CPT Code: FULL RESULT: EXAM: RIGHT HIP RADIOGRAPHY EXAM DATE: 09/22/2018 03:26 PM. CLINICAL HISTORY: Low back pain, acute. COMPARISON: LUMBAR SPINE 2 VIEW 09/05/2017 3:24 PM. TECHNIQUE: 2 views. FINDINGS: Bones: Stable appearance of a left total hip arthroplasty. No acute fracture or malalignment. Joints: Stable moderate degenerative narrowing of the [place] right hip with mild marginal osteophyte of the femoral head. Degenerative disk changes at L3-L4 and L4-L5. Stable mild osteitis pubis. Soft Tissues: Normal. No soft tissue swelling. IMPRESSION: No acute fracture. Stable left hip arthroplasty. Stable osteoarthritis right hip. RADIA
== END 2018-09-22 15:02 | disposition home or self-care (01) ==
LOC: DI.WCP 15:01
PROVIDERS: ATTEND Physician Assistant Medical
DX: M16.11 Unilateral primary osteoarthritis, right hip (principal); Z96.642 Presence of left artificial hip joint

== ENCOUNTER 2018-10-07 08:02 | Outpatient (CLI) | payer MEDICARE, OTHER ==
[2018-10-07 12:47] LABS: BASOPHILS % (AUTO) 0.5 %; EOSINOPHILS # (AUTO) 0.1 10^3/uL (0.0-0.7); EOSINOPHILS % (AUTO) 1.5 %; HGB - HEMOGLOBIN 13.8 g/dL (12.0-16.0); LYMPHOCYTES # (AUTO) 2.6 10^3/uL (1.5-3.5); LYMPHOCYTES % (AUTO) 42.1 %; MEAN CORPUSCULAR HEMOGLOBIN 27.8 pg (27.0-31.0); MEAN CORPUSCULAR HGB CONC 33.4 g/dL (32.0-36.0); MEAN CORPUSCULAR VOLUME 83.4 fL (81.0-99.0); MEAN PLATELET VOLUME 8.3 fL (7.9-10.8); MONOCYTES # (AUTO) 0.4 10^3/uL (0.0-1.0); MONOCYTES % (AUTO) 6.2 %; NEUTROPHILS # (AUTO) 3.1 10^3/uL (1.5-6.6); NEUTROPHILS % (AUTO) 49.7 %; PLT - PLATELET COUNT 242 10^3/uL (130-450); RED BLOOD COUNT 4.97 10^6/uL (4.20-5.40); RED CELL DISTRIBUTION WIDTH 14.8 % (12.0-15.0); WHITE BLOOD COUNT 6.2 x10^3/uL (4.8-10.8)
[2018-10-07 13:22] LABS: ALBUMIN 4.2 g/dL (3.2-5.5); ALBUMIN/GLOBULIN RATIO 1.3 (1.0-2.2); ALKALINE PHOSPHATASE 96 IU/L (42-121); ALT ALANINE AMINOTRANSFERASE 13 IU/L (10-60); AST ASPARTATE AMINOTRANSFERASE 21 IU/L (10-42); BILIRUBIN,TOTAL 0.6 mg/dL (0.2-1.0); BUN - BLOOD UREA NITROGEN 17 mg/dL (6-20); CALCIUM 9.3 mg/dL (8.5-10.3); CARBON DIOXIDE - CO2 28 mmol/L (21-32); CHLORIDE 105 mmol/L (101-111); CHOL/HDL RATIO 4.2 (<4.4); CHOLESTEROL 219 mg/dL; CREATININE 0.6 mg/dL (0.4-1.0); GFR - MDRD 95 (>89); GLUCOSE 106 mg/dL (70-100); HDL CHOLESTEROL 52 mg/dL; LDL CHOLESTEROL,CALCULATED 140 mg/dL; LDL/HDL RATIO 2.7 (<4.4); SODIUM 140 mmol/L (135-145); TOTAL PROTEIN 7.4 g/dL (6.7-8.2); VLDL CHOLESTEROL 27 mg/dL
== END 2018-10-07 08:03 | disposition home or self-care (01) ==
LOC: LAB.WCP 08:02
PROVIDERS: ATTEND Physician Assistant Medical
DX: I10 Essential (primary) hypertension (principal); K21.9 Gastro-esophageal reflux disease without esophagitis
CPT/HCPCS: 36415; 80053; 80061; 83721; 85025

== ENCOUNTER 2018-12-29 08:00 | Outpatient (CLI) | payer MEDICARE, OTHER ==
[2018-12-29 13:39] LABS: BILIRUBIN,URINE NEGATIVE (NEGATIVE); GLUCOSE, URINE (UA) NEGATIVE (NEGATIVE); KETONES,URINE (UA) NEGATIVE (NEGATIVE); LEUKOCYTE ESTERASE, URINE SMALL (NEGATIVE); NITRITE,URINE NEGATIVE (NEGATIVE); OCCULT BLOOD,URINE NEGATIVE (NEGATIVE); PROTEIN,URINE NEGATIVE (NEGATIVE); UROBILINOGEN,URINE 0.2 (NORMAL) E.U./dL (NORMAL)
[2018-12-29 13:51] LABS: CLARITY,URINE CLEAR (CLEAR)
[2018-12-29 13:52] LABS: BACTERIA,URINE Few /HPF (None Seen); SQUAMOUS EPITHELIAL CELL,UR MANY Squamous (<= Few); WBC CLUMPS,URINE PRESENT
== END 2018-12-29 23:59 | disposition home or self-care (01) ==
LOC: LAB.WCP 08:00
PROVIDERS: ATTEND Family Medicine
DX: N39.0 Urinary tract infection, site not specified (principal)
CPT/HCPCS: 81001; 81003; 87086

== ENCOUNTER 2019-06-20 23:59 | Emergency (ER) | payer MEDICARE, OTHER ==
--- NOTE | 2019-06-21 00:34 | ED Physician Documentation ---
History of Present Illness - Stated complaint Stated Complaint: PEARSON/BP CONCERN - Chief complaint Chief Complaint: Heent - Additonal information Additional information: This is an 89-year-old female with a history of hypertension, anxiety, who presents with elevated blood pressure, headache and vague malaise. History is primarily provided by patient's daughter who accompanies her at bedside. Patient had a bit of cough and cold several weeks ago, and over last days complained that her ears feel a bit plugged. Today she got a home blood pressure cuff and she took her blood pressure and it reportedly showed 200s systolic, she called her daughter and was quite anxious about this, and state that she was not feeling right after taking her blood pressure, so her daughter brought her here for further evaluation. Sounds like patient took a dose of her Xanax prior to arriving. She tells me that she feels generalized weakness. She was complaining about a headache to her daughter, she initially denies headache to me, and then states that she does have a moderate headache over her left upper forehead/top of scalp. This headache and poorly began after a blood pressure in the last several hours. She denies weakness or numbness. On specific questioning she states she has had intermittent mild left-sided chest discomfort, this is been ongoing for days to weeks, and she does not have any at this time. She denies any shortness of breath, no abdominal pain, no vomiting.She reportedly took an extra dose of her amlodipine tonight after seeing her blood pressure elevated Review of Systems Constitutional: denies: Fever Eyes: denies: Loss of vision Nose: denies: Rhinorrhea / runny nose Throat: denies: Sore throat Cardiac: reports: Chest pain / pressure Respiratory: denies: Dyspnea GI: denies: Abdominal Pain : denies: Dysuria Neurologic: reports: Headache Psychiatric: reports: Insomnia Endocrine: denies: Easy bruising / bleeding PD PAST MEDICAL HISTORY - Past Medical History Cardiovascular: Hypertension, Arrhythmia, Other Respiratory: None Neuro: Headaches, Fainting, Other Endocrine/Autoimmune: Type 2 diabetes GI: GERD, Hemorrhoids 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: Other : Chronic bladder infection Psych: Depression, Anxiety Musculoskeletal: Osteoarthritis, Fibromyalgia Derm: None - Past Surgical History General: Cholecystectomy, Appendectomy, Colonoscopy, EGD Ortho: Hip replacement, Shoulder arthroplasty, Carpal Tunnel surgery, Other /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: Hysterectomy, Oophrectomy, Other HEENT: Tonsil/Adenoidectomy - Present Medications Home Medications: Ambulatory Orders Medication Instructions Recorded Confirmed ALPRAZolam [Alprazolam] 0.5 mg PO BID PRN 08/26/18 08/26/18 Albuterol Sulfate [Proair 2 puffs INH PRN PRN 08/26/18 08/26/18 Respiclick] Amlodipine Besylate 5 mg PO DAILY 08/26/18 08/26/18 Nitrofurantoin Macrocrystal 100 mg PO DAILY PRN 08/26/18 08/26/18 [Nitrofurantoin] - Allergies Allergies/Adverse Reactions: Allergies Allergy/AdvReac Type Severity Reaction Status Date / Time adhesive tape Allergy Unknown Verified 08/28/18 15:31 azithromycin [From Zithromax] Allergy Unknown Verified 08/28/18 15:31 benzonatate Allergy Unknown Verified 08/28/18 15:31 [From Tessalon Perles] metformin [From Glucophage] Allergy Unknown Verified 08/28/18 15:31 olmesartan [From Benicar] Allergy Unknown Verified 08/28/18 15:31 - Social History Does the pt smoke?: No Smoking Status: Never smoker Does the pt drink ETOH?: No PD ED PE NORMAL - General General: Other (Appears slightly tired, closes her eyes, but on questioning she wakes up and answers questions appropriately. She is oriented. to place self event) - HEENT HEENT: Atraumatic, PERRL, Other (External canals bilaterally appear normal, there is no effusion bilaterally, TMs are flat and [place] with some chronic scarring bilaterally) - Neck Neck: Supple, no meningeal sign - Cardiac Cardiac: RRR - Respiratory Respiratory: No respiratory distress, Clear bilaterally - Abdomen Abdomen: Soft, Non tender, Non distended - Extremities Extremities: No deformity, Normal ROM s pain - Neuro Neuro: web master 2-12 intact, No motor deficit, No sensory deficit, Normal speech, Other (Tired and sleeping but when awakened she is alert and. No focal deficits. She ambulates with assistance of a cane, has a normal narrow based gait) Results - Vitals Vitals: Vital Signs - 24 hr 06/21/19 06/21/19 00:01 02:04 Temperature 36.5 C Heart Rate 64 62 Respiratory 18 16 Rate Blood Pressure 166/81 H 148/76 H O2 Saturation 100 97 Oxygen O2 Source Room air - EKG (time done) 00:45 Other comments: Other comments (Rate 64, rhythm sinus, thereis a left bundle branch block unchanged from prior, no Significant ST segment elevation or depression. No abnormal T wave inversions. Intervals within normal limits.) - Labs Labs: Laboratory Tests 06/21/19 06/21/19 06/21/19 00:59 00:59 00:59 WBC 6.1 RBC 4.88 Hgb 14.0 Hct 41.7 MCV 85.5 MCH 28.7 MCHC 33.6 RDW 13.4 Plt Count 203 MPV 9.7 Neut # (Auto) 3.0 Lymph # (Auto) 2.4 [place] # (Auto) 0.5 Eos # (Auto) 0.1 Baso # (Auto) 0.1 Absolute Nucleated RBC 0.00 Nucleated RBC % 0.0 Sodium 140 Potassium 3.9 Chloride 105 Carbon Dioxide 24 Anion Gap 11.0 BUN 18 Creatinine 0.5 Estimated GFR (MDRD) 116 Glucose 115 H Calcium 9.5 Total Bilirubin 0.7 AST 67 H ALT 100 H Alkaline Phosphatase 87 Troponin I High Sens 8.2 Total Protein 7.3 Albumin 4.0 Globulin 3.3 Albumin/Globulin Ratio 1.2 Lipase 30 Salicylates < 6.0 PD MEDICAL DECISION MAKING - ED course Complexity details: considered differential (Head bleed, tension headache, tumor/mass, ACS, dysrhythmia, pneumothorax, pneumonia, medication side effect) ED course: On initial examination patient is nontoxic-appearing she is somewhat hypertensive but in the 160/80 range, certainly not in the realm of hypertensive emergency. She seems a bit tired at first, but she has no neurologic deficits and on repeat evaluation she is awake alert and at her baseline according to her daughter. She has somewhat vague symptoms, she has a headache, but then complains of general malaise and minimizes her headache, and her history is somewhat wandering. Reviewing her records this appears to be her baseline And a sound like she oftentimes is multiple vague complaints, there is a suspicion that anxiety may play a role in some of her presentations, this is based on her past records and also based on her daughter's history. EKG shows no convincing signs of ischemia or dysrhythmia, her CBC is unre markable, her CMP is notable only for mild AST and ALT elevations. Speak with the patient she has not had much Tylenol recently, certainly no overdoses. She does not have any vomiting, she has a history of cholecystectomy. She does not have symptoms of hepatitis. She has only slight epigastric tenderness on examination and she is complaining of no abdominal pain whatsoever, I highly doubt acute hepatobiliary pathology. She may have some mild fatty liver disease, I recommend that she follow-up with her primary care provider to get repeat liver enzymes drawn, and that she return to the emergency department if she has any abdominal symptoms. These instructions were reviewed with patient and her daughter and put in her discharge paperwork. Her troponin is negative. Patient has been complaining of some changes in hearing, her ear exam does not show signs of infection or effusion, and does not like she is been taking salicylates, but given her symptoms I did draw a salicylate level this was negative. Her hearing intermittently appears normal on my examination, and she has no other obvious deficits, I recommend that she follow-up with her primary care provider on this. CT scan of her head was obtained given her headache, this shows no acute intracranial abnormality. Given that the scan was obtained within 6 hours of the onset of her headache is quite sensitive for intracranial bleed, and after discussion with the patient and her daughter they are not interested in pursuing lumbar puncture and I completely agree with this, I think her risk of subarachnoid hemorrhage or other pathology that could be caught on lumbar puncture is very low today. Patient is Awake, alert, no neurologic deficits, isvfeeling better and She and her daughter would like to go home. I reviewed return precautions and follow-up instructions with them, patient was discharged home in the care of her daughter. Departure - Departure Disposition: 01 Home, Self Care Clinical Impression: Headache Qualifiers: Headache type: unspecified Headache chronicity pattern: acute headache Intractability: not intractable Qualified Code(s): R51 - Headache Condition: Good Instructions: ED Cephalgia Unspecified Follow-Up: Trena Gunn PA-C [Primary Care Provider] - Within 1 week Comments: You were seen today for high blood pressure, headache, not feeling well. Your CT scan today did not show any obvious cause of your headache. Your heart enzyme also was normal. Your labs show some slight elevations of your liver enzymes, your AST was 67 and your ALT was 100, please follow-up with your primary care provider on these values - they will likely want to recheck them. If you are having abdominal pain or vomiting, return to the emergency department. If your headache is worsening, or you are having other concerning symptoms like we talked about, return for recheck. Please calibrate your blood pressure cuff at your primary care office. Discharge Date/Time: 06/21/19 02:14
[2019-06-21 01:04] LABS: BASOPHILS # (AUTO) 0.1 10^3/uL (0.0-0.1); EOSINOPHILS # (AUTO) 0.1 10^3/uL (0.0-0.7); EOSINOPHILS % (AUTO) 1.5 %; LYMPHOCYTES # (AUTO) 2.4 10^3/uL (1.5-3.5); LYMPHOCYTES % (AUTO) 39.6 %; MEAN CORPUSCULAR HEMOGLOBIN 28.7 pg (27.0-31.0); MEAN CORPUSCULAR HGB CONC 33.6 g/dL (32.0-36.0); MEAN CORPUSCULAR VOLUME 85.5 fL (81.0-99.0); MEAN PLATELET VOLUME 9.7 fL (7.9-10.8); MONOCYTES # (AUTO) 0.5 10^3/uL (0.0-1.0); MONOCYTES % (AUTO) 8.4 %; NEUTROPHILS % (AUTO) 49.3 %; PLT - PLATELET COUNT 203 10^3/uL (130-450); RED BLOOD COUNT 4.88 10^6/uL (4.20-5.40); RED CELL DISTRIBUTION WIDTH 13.4 % (12.0-15.0); WHITE BLOOD COUNT 6.1 x10^3/uL (4.8-10.8)
[2019-06-21 01:19] LABS: ALBUMIN/GLOBULIN RATIO 1.2 (1.0-2.2); ALKALINE PHOSPHATASE 87 IU/L (42-121); ALT ALANINE AMINOTRANSFERASE 100 IU/L (10-60); AST ASPARTATE AMINOTRANSFERASE 67 IU/L (10-42); BILIRUBIN,TOTAL 0.7 mg/dL (0.2-1.0); BUN - BLOOD UREA NITROGEN 18 mg/dL (6-20); CALCIUM 9.5 mg/dL (8.5-10.3); CARBON DIOXIDE - CO2 24 mmol/L (21-32); CHLORIDE 105 mmol/L (101-111); CREATININE 0.5 mg/dL (0.4-1.0); GFR - MDRD 116 (>89); GLUCOSE 115 mg/dL (70-100); LIPASE 30 U/L (22-51); SALICYLATE < 6.0 mg/dL; SODIUM 140 mmol/L (135-145); TOTAL PROTEIN 7.3 g/dL (6.7-8.2)
[2019-06-21] MEDS ORDERED: ACETAMINOPHEN 325 MG TABLET PO STA (01:19)
--- NOTE | 2019-06-21 01:27 | CT Report ---
Reason: headache, HTN Procedure Date: 06/21/2019 Accession Number: [id number] / [id number] Procedure: CT - HEAD WO CPT Code: Final Report FULL RESULT: EXAM: CT HEAD EXAM DATE: 06/21/2019 01:08 AM. CLINICAL HISTORY: Headache, hypertension. COMPARISON: HEAD ANGIO 11/30/2018 2:57 PM. TECHNIQUE: Multiaxial CT images were obtained from the foramen magnum to the vertex. Reformats: Sagittal and coronal. IV contrast: None. In accordance with CT protocol optimization, one or more of the following dose reduction techniques were utilized for this exam: automated exposure control, adjustment of mA and/or KV based on patient size, or use of iterative reconstructive technique. FINDINGS: Parenchyma: Periventricular low-density white matter changes. There is no evidence of territorial infarction or hemorrhage. Extraaxial Spaces: Normal for age. No subdural or epidural collections identified. Ventricles: Normal in size and position. Sinuses and Orbits: There is mild mucosal thickening in the right sphenoid air cells. Otherwise the visualized sinuses and mastoid air cells are unremarkable. Bones: No evidence of fracture or calvarial defect. Other: None. IMPRESSION: 1. No acute intracranial abnormality. 2. Low-density white matter changes compatible with chronic small vessel ischemic disease. RADIA
[2019-06-21 02:05] VITALS: BP 148/76
== END 2019-06-21 02:14 | disposition home or self-care (01) ==
LOC: ED 23:59
DX: I10 Essential (primary) hypertension (principal); R51 Headache; R53.81 Other malaise; R07.9 Chest pain, unspecified; I44.7 Left bundle-branch block, unspecified; R74.8 Abnormal levels of other serum enzymes; E11.9 Type 2 diabetes mellitus without complications; F41.9 Anxiety disorder, unspecified
CPT/HCPCS: 36415; 70450; 80053; 83690; 84484; 85025; 93005; 99284; A9270; 80329

== ENCOUNTER 2019-06-23 07:48 | Outpatient (CLI) | payer MEDICARE, OTHER | END 2019-06-23 07:49 | disposition critical access hospital (66) | LOC: EMS 07:48 | PROVIDERS: ATTEND Surgery | DX: R51 Headache (principal); R41.0 Disorientation, unspecified; R53.1 Weakness | CPT/HCPCS: A0425; A0429 ==

== ENCOUNTER 2019-06-23 07:59 | Emergency (ER) | payer MEDICARE, OTHER ==
--- NOTE | 2019-06-23 08:06 | ED Physician Documentation ---
PD HPI FOCAL NEURO - Stated complaint Stated Complaint: POSS CVA - History obtained from History obtained from: Patient, EMS - History of Present Illness Timing - onset: Unknown Timing - details: Gradual onset Severity of deficit: Moderate Weakness: Arm, Hand, Leg, Foot, Left Associated symptoms: Headache. No: Nausea / vomiting, Seizure, Syncope, Fall, Head injury, Chest pain, Neck pain, Back pain, Fever Contributing factors: negative: Anticoagulated, Vascular dz, Atrial fibrillation Baseline status: positive: A&OX3, ambulatory, indep Similar symptoms before: Has not had sx before Recently seen: Emergency Dept - Additional information Additional information: 89-year-old female with history of PTSD and intermittent generalized weakness associated with headache has developed a headache. She was seen in the emergency department 2 days ago she was noted to be hypertensive and she had no other specific findings. Today she went to her primary care doctor's office, dove herself there a bit confused, with a chief complaint of headache. She was noted to have some left-sided weakness. She was having difficulty with speech. An ambulance was summoned and she was brought to the hospital. She arrives to the hospital able to speak several words but confused. She was not able to cooperate with exam and appeared weak in all extremities. 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: Other : Chronic bladder infection Psych: Depression, Anxiety Musculoskeletal: Osteoarthritis, Fibromyalgia Derm: None - Past Surgical History General: Cholecystectomy, Appendectomy, Colonoscopy, EGD Ortho: Hip replacement, Shoulder arthroplasty, Carpal Tunnel surgery, Other /INSPECTOR STRUCTURAL BONDING: Hysterectomy, Oophrectomy, Other HEENT: Tonsil/Adenoidectomy - Present Medications Home Medications: Ambulatory Orders Medication Instructions Recorded Confirmed ALPRAZolam [Alprazolam] 0.5 mg PO BID PRN 08/26/18 08/26/18 Albuterol Sulfate [Proair 2 puffs INH PRN PRN 08/26/18 08/26/18 Respiclick] Amlodipine Besylate 5 mg PO DAILY 08/26/18 08/26/18 Nitrofurantoin Macrocrystal 100 mg PO DAILY PRN 08/26/18 08/26/18 [Nitrofurantoin] - Allergies Allergies/Adverse Reactions: Allergies Allergy/AdvReac Type Severity Reaction Status Date / Time adhesive tape Allergy Unknown Verified 08/28/18 15:31 azithromycin [From Zithromax] Allergy Unknown Verified 08/28/18 15:31 benzonatate Allergy Unknown Verified 08/28/18 15:31 [From Tessalon Perles] metformin [From Glucophage] Allergy Unknown Verified 08/28/18 15:31 olmesartan [From Benicar] Allergy Unknown Verified 08/28/18 15:31 - Social History Does the pt smoke?: No Smoking Status: Never smoker Does the pt drink ETOH?: No NIHSS - Time Time: 08:20 (not able to cooperate for exam. ) Results - Vitals Vitals: Vital Signs - 24 hr 06/23/19 06/23/19 06/23/19 08:01 08:19 08:30 Temperature 37 C Heart Rate 92 90 80 Respiratory 16 16 16 Rate Blood Pressure 164/82 H 164/82 H 158/84 H O2 Saturation 99 98 97 06/23/19 06/23/19 08:45 09:00 Temperature Heart Rate 95 87 Respiratory 16 16 Rate Blood Pressure 149/78 H 151/79 H O2 Saturation 97 97 Oxygen O2 Source Room air - EKG (time done) 0821 Rate: Rate (enter#) (90) Intervals: LBBB Compare to prior EKG: Changed from prior EKG (SPT 06-21-19 rate has increased) Computer interpretation: Agree with computer - Labs Labs: Laboratory Tests 06/23/19 06/23/19 06/23/19 08:29 08:29 08:29 WBC 5.4 RBC 5.17 Hgb 14.6 Hct 43.9 MCV 84.9 MCH 28.2 MCHC 33.3 RDW 13.4 Plt Count 160 MPV 10.8 Neut # (Auto) 3.1 Lymph # (Auto) 1.8 [place] # (Auto) 0.3 Eos # (Auto) 0.0 Baso # (Auto) 0.0 Absolute Nucleated RBC 0.00 Nucleated RBC % 0.0 PT 13.0 H INR 1.1 Sodium 135 Potassium 3.8 Chloride 103 Carbon Dioxide 23 Anion Gap 9.0 BUN 18 Creatinine 0.5 Estimated GFR (MDRD) 116 Glucose 121 H Calcium 9.0 Total Bilirubin 0.8 AST 69 H ALT 94 H Alkaline Phosphatase 87 Total Protein 7.2 Albumin 4.1 Globulin 3.1 Albumin/Globulin Ratio 1.3 Lipase 26 Urine Color Urine Clarity Urine pH Ur Specific [place] Urine Protein Urine Glucose (UA) Urine Ketones Urine Occult Blood Urine Nitrite Urine Bilirubin Urine Urobilinogen Ur Leukocyte Esterase Urine RBC Urine WBC Ur Epithelial Cells Ur Squamous Epith Cells Urine Bacteria Ur Microscopic Review Urine Culture Comments 06/23/19 09:01 WBC RBC Hgb Hct MCV MCH MCHC RDW Plt Count MPV Neut # (Auto) Lymph # (Auto) [place] # (Auto) Eos # (Auto) Baso # (Auto) Absolute Nucleated RBC Nucleated RBC % PT INR Sodium Potassium Chloride Carbon Dioxide Anion Gap BUN Creatinine Estimated GFR (MDRD) Glucose Calcium Total Bilirubin AST ALT Alkaline Phosphatase Total Protein Albumin Globulin Albumin/Globulin Ratio Lipase Urine Color LIGHT YELLOW Urine Clarity CLEAR Urine pH 7.5 Ur Specific [place] 1.010 Urine Protein NEGATIVE Urine Glucose (UA) NEGATIVE Urine Ketones NEGATIVE Urine Occult Blood NEGATIVE Urine Nitrite NEGATIVE Urine Bilirubin NEGATIVE Urine Urobilinogen 0.2 (NORMAL) Ur Leukocyte Esterase SMALL H Urine RBC 0-5 Urine WBC 0-3 Ur Epithelial Cells FEW Transitional Ur Squamous Epith Cells FEW Squamous Urine Bacteria Rare Ur Microscopic Review INDICATED Urine Culture Comments INDICATED - Rads (name of study) CTA head Radiology: Prelim report reviewed (Impression: CT head: No significant change from prior. No acute intracranial large vessel occlusion identified. Stable appearing prominent chronic cavernosus carotid calcifications and probable infundibulum at the left P-comm origin. These findings do not preclude the possibility of a small or early ischemic infarct for which brain MRI is more sensitive.), EMP read indepedently, See rad report CT head Radiology: Prelim report reviewed, EMP read indepedently, See rad report CTA neck Radiology: Prelim report reviewed (Impression: 1. 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 On the left up to 60% percent luminal stenosis of the proximal cervical ICA about 1/2 cm from the vessel origin. 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 3. No acute abnormality of significant vertebral artery stenosis in the neck. 4. 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 She presented to the clinic with what appeared to be a left hemiparesis this was not obvious on arrival to the emergency department. The patient appeared anxious and unable to cooperate with the examination. She administered a liter of saline after discovery of some dehydration on interrogation the inferior vena cava. She is given Toradol for her headache. The patient has resolution of her symptoms entirely and she is able to relate that she believes this was a panic attack and that she has had this happen to her previously and this was a bad one for her. She is completely alert oriented and weakness has resolved. Departure - Departure Disposition: 01 Home, Self Care Clinical Impression: Dehydration, Panic attack Condition: Stable Instructions: ED Dehydration, ED Panic Attack Follow-Up: Trena Gunn PA-C [Primary Care Provider] - Comments: Today it appears you were mildly dehydrated and had a panic attack. The panic attack can cause all of the symptoms that you were experiencing. These may be related to awakening and not feeling well secondary to sedatives you have been taking at night. Talk to your primary care doctor about alternatives for sleep aid.
--- NOTE | 2019-06-23 08:30 | CT Report ---
Reason: stroke Procedure Date: 06/23/2019 Accession Number: [id number] / [id number] Procedure: CT - HEAD WO CPT Code: Addended Final Report FULL RESULT: EXAM: CT HEAD EXAM DATE: 06/23/2019 08:19 AM. CLINICAL HISTORY: Weakness, headache COMPARISON: HEAD W/O 06/21/2019 1:07 AM HEAD W/O 08/26/2018 4:29 PM. TECHNIQUE: Multiaxial CT images were obtained from the foramen magnum to the vertex. Reformats: Sagittal and coronal. IV contrast: None. In accordance with CT protocol optimization, one or more of the following dose reduction techniques were utilized for this exam: automated exposure control, adjustment of mA and/or KV based on patient size, or use of iterative reconstructive technique. FINDINGS: Parenchyma: No intraparenchymal hemorrhage. No evidence of mass, midline shift, or CT findings of infarction. Stable periventricular white matter hypodensity likely represents small vessel ischemic disease. 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 Lindquist-white differentiation is distinct. Extraaxial Spaces: Normal for age. No subdural or epidural collections identified. Ventricles: Normal in size and position. Sinuses and Orbits: Imaged paranasal sinuses, orbits, and mastoids show no significant abnormality. Bones: No evidence of fracture or calvarial defect. Other: None. IMPRESSION: No acute intracranial CT abnormality. RADIA The critical test notification system was initiated by Dr. Kirsten Emmanuel at 08:30 AM on 06/23/2019. ADDENDUM: 06/23/19 08:32 The above critical test findings were discussed with Sha Dailey by Dr. Kirsten Emmanuel at 08:32 AM on 06/23/2019.
[2019-06-23] MEDS ORDERED: SODIUM CHLORIDE 0.9% 1,000 ML IV ONE (08:38)
[2019-06-23] MEDS ORDERED: DEXAMETHASONE 10 MG/ML VIAL IVP STA (08:38)
[2019-06-23] MEDS ORDERED: KETOROLAC 30 MG/ML VIAL IVP STA (08:38)
[2019-06-23 08:45] LABS: BASOPHILS % (AUTO) 0.7 %; EOSINOPHILS % (AUTO) 0.6 %; HGB - HEMOGLOBIN 14.6 g/dL (12.0-16.0); LYMPHOCYTES # (AUTO) 1.8 10^3/uL (1.5-3.5); LYMPHOCYTES % (AUTO) 33.8 %; MEAN CORPUSCULAR HEMOGLOBIN 28.2 pg (27.0-31.0); MEAN CORPUSCULAR HGB CONC 33.3 g/dL (32.0-36.0); MEAN CORPUSCULAR VOLUME 84.9 fL (81.0-99.0); MEAN PLATELET VOLUME 10.8 fL (7.9-10.8); MONOCYTES # (AUTO) 0.3 10^3/uL (0.0-1.0); MONOCYTES % (AUTO) 6.3 %; NEUTROPHILS # (AUTO) 3.1 10^3/uL (1.5-6.6); NEUTROPHILS % (AUTO) 57.5 %; PLT - PLATELET COUNT 160 10^3/uL (130-450); RED BLOOD COUNT 5.17 10^6/uL (4.20-5.40); RED CELL DISTRIBUTION WIDTH 13.4 % (12.0-15.0); WHITE BLOOD COUNT 5.4 x10^3/uL (4.8-10.8)
[2019-06-23 08:46] LABS: INR 1.1 (0.8-1.2)
[2019-06-23 08:49] LABS: ALBUMIN 4.1 g/dL (3.2-5.5); ALBUMIN/GLOBULIN RATIO 1.3 (1.0-2.2); BILIRUBIN,TOTAL 0.8 mg/dL (0.2-1.0); CREATININE 0.5 mg/dL (0.4-1.0); TOTAL PROTEIN 7.2 g/dL (6.7-8.2)
--- NOTE | 2019-06-23 08:56 | CT Report ---
Reason: stroke Procedure Date: 06/23/2019 Accession Number: [id number] / [id number] Procedure: CT - ANGIO HEAD W/WO CPT Code: Final Report FULL RESULT: EXAM: CT ANGIOGRAM HEAD. EXAM DATE: 06/23/2019 08:24 AM CLINICAL HISTORY: Headache and weakness. COMPARISON: 11/30/2018. TECHNIQUE: - CT Angiogram: Using a multidetector scanner, high-resolution axial images were acquired from the skull base through vertex following rapid infusion of intravenous contrast. Reformats: Multiplanar MIP reformats were reconstructed. NASCET criteria used for stenosis measurement. IV Contrast: 80 mL Optiray 320. In accordance with CT protocol optimization, one or more of the following dose reduction techniques were utilized for this exam: automated exposure control, adjustment of mA and/or KV based on patient size, or use of iterative reconstructive technique. FINDINGS: Patent distal internal carotid arteries. Abnormal contour of the partially visualized distal cervical internal carotid arteries is consistent with fibromuscular dysplasia. Prominent atherosclerotic calcifications of the cavernous segments of both internal carotid arteries. Luminal stenosis appears especially severe at the level of the left carotid siphon. No acute abnormality or significant stenosis of the intradural vertebral arteries or basilar artery. Patent bilateral posterior communicating arteries. No proximal flow limiting stenosis or occlusion of the posterior cerebral arteries. Stable 2.5 mm conical outpouching as previously described from the left supraclinoid ICA, more likely infundibulum than aneurysm. The left posterior communicating artery appears to arise from the tip of this structure medially. No proximal flow limiting stenosis or occlusion of the anterior cerebral arteries. No proximal flow limiting stenosis, occlusion or filling defect of the middle cerebral arteries. No evidence for anvik of Vazquez aneurysm. IMPRESSION: CTA Head: No significant change from prior. No acute intracranial large vessel occlusion identified. Stable appearing prominent chronic cavernous carotid calcifications and probable infundibulum at the left P-comm origin. These findings do not preclude the possibility of small or early ischemic infarct for which brain MRI is more sensitive. RADIA
[2019-06-23 09:03] LABS: BILIRUBIN,URINE NEGATIVE (NEGATIVE); GLUCOSE, URINE (UA) NEGATIVE (NEGATIVE); KETONES,URINE (UA) NEGATIVE (NEGATIVE); LEUKOCYTE ESTERASE, URINE SMALL (NEGATIVE); NITRITE,URINE NEGATIVE (NEGATIVE); OCCULT BLOOD,URINE NEGATIVE (NEGATIVE); PH,URINE 7.5 PH (5.0-7.5); PROTEIN,URINE NEGATIVE (NEGATIVE); UROBILINOGEN,URINE 0.2 (NORMAL) E.U./dL (NORMAL)
--- NOTE | 2019-06-23 09:04 | CT Report ---
Reason: stroke Procedure Date: 06/23/2019 Accession Number: [id number] / [id number] Procedure: CT - ANGIO NECK W CPT Code: Final Report FULL RESULT: EXAM: CT ANGIOGRAM NECK EXAM DATE: 06/23/2019 08:24 AM. CLINICAL HISTORY: Stated clinical concern for stroke in this patient with reported symptoms of weakness and headache. COMPARISON: No prior neck CTA. TECHNIQUE: Routine axial helical imaging was performed from the skull base through the aortic arch. Reconstructions: Routine multiplanar 3D MIP reconstructions. IV Contrast: 80 mL Optiray 320. Evaluation of arterial stenosis is based on a NASCET method of measurement. In accordance with CT protocol optimization, one or more of the following dose reduction techniques were utilized for this exam: automated exposure control, adjustment of mA and/or KV based on patient size, or use of iterative reconstructive technique. FINDINGS: Chronic prominent multilevel hypertrophic degenerative cervical spinal spondylosis. Moderate atherosclerotic disease with calcified and noncalcified plaque at the top of the aortic arch. Grossly patent great vessel origins. No acute abnormality or significant stenosis of the left cervical vertebral artery which arises from the top of the aortic arch. No acute abnormality or significant stenosis of the right cervical vertebral artery. The proximal right common carotid artery is obscured by beam hardening streak artifact in the low neck where there is venous contrast contamination. Mild to moderate atherosclerosis with calcified and noncalcified plaque at the right cervical carotid bifurcation but not associated with flow-limiting stenosis. Irregular nodular and beaded contours of the lumen of the right cervical ICA, mainly in the mid segment, findings are consistent with fibromuscular dysplasia without elevated propagating dissection flap, focal filling defect or flow limiting stenosis. Tortuous proximal left common carotid artery, patent. Moderate atherosclerotic disease at the left cervical carotid bifurcation where there is soft and hard plaque with extension into the proximal left cervical ICA where there is focal luminal stenosis measuring up to 60%, 1.5 cm from the left ICA origin. Predominantly involving the mid segment of the left cervical ICA, there is extensive nodular and beaded contour irregularity of the left cervical ICA lumen in a pattern most consistent with fibromuscular dysplasia. No evidence for focal filling defect, associated flow-limiting stenosis or propagating elevated dissection flap. IMPRESSION: 1. 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 On the left, up to 60% luminal stenosis of the proximal cervical ICA, about 1.5 cm from the vessel origin. 2. 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 3. No acute abnormality or significant vertebral artery stenosis in the neck. 4. Prominent chronic multilevel hypertrophic degenerative cervical spinal spondylosis. RADIA
[2019-06-23 09:06] LABS: CLARITY,URINE CLEAR (CLEAR)
[2019-06-23 09:36] LABS: BACTERIA,URINE Rare /HPF (None Seen); EPITHELIAL CELLS,UR FEW Transitional /HPF (<= Few); RBC,URINE 0-5 /HPF (0-5); SQUAMOUS EPITHELIAL CELL,UR FEW Squamous (<= Few)
[2019-06-23] MEDS ORDERED: ACETAMINOPHEN 325 MG TABLET PO STA (10:41)
--- NOTE | 2019-06-23 10:57 | XRAY Report ---
Reason: chest pain Procedure Date: 06/23/2019 Accession Number: [id number] / [id number] Procedure: XR - Chest 1 View X-Ray CPT Code: 80715 Final Report FULL RESULT: EXAM: CHEST RADIOGRAPHY EXAM DATE: 06/23/2019 10:45 AM. CLINICAL HISTORY: Chest pain. COMPARISON: CHEST 2 VIEW PA/LAT 06/08/2018 3:08 PM. TECHNIQUE: 1 view. FINDINGS: Lungs/Pleura: No focal opacities evident. No pleural effusion. No pneumothorax. Mediastinum: Within exam limitations, the cardiomediastinal contour is normal. Mildly increased prominence of the vascular pedicle noted. Other: Bilateral shoulder arthroplasties are in stable position. IMPRESSION: No acute disease or significant interval change. RADIA
[2019-06-23] MEDS ORDERED: HYDROcod/ACETAM 5/325 MG TABLET PO STA (12:45)
[2019-06-23 12:54] VITALS: BP 163/101
[2019-06-23] MEDS ORDERED: IOVERSOL 320 100 ML VIAL IVP ONE (17:39)
== END 2019-06-23 13:07 | disposition home or self-care (01) ==
LOC: EDUNIT# → ED 07:59
DX: E86.0 Dehydration (principal); F41.0 Panic disorder [episodic paroxysmal anxiety]; I10 Essential (primary) hypertension; E11.9 Type 2 diabetes mellitus without complications
CPT/HCPCS: 36415; 70450; 70496; 70498; 71045; 80053; 81001; 83690; 85025; 85610; 87086; 93005; 96361; 96374; 99281; 99284; A9270; 81003

== ENCOUNTER 2019-06-26 11:19 | Outpatient (CLI) | payer MEDICARE, OTHER | END 2019-06-26 11:20 | disposition critical access hospital (66) | LOC: EMS 11:19 | PROVIDERS: ATTEND Surgery | DX: R07.89 Other chest pain (principal); R51 Headache; R53.1 Weakness | CPT/HCPCS: A0425; A0429 ==

== ENCOUNTER 2019-06-26 11:38 | Observation (INO) | payer MEDICARE, OTHER ==
[2019-06-26] MEDS ORDERED: LORazepam 2 MG/ML VIAL IVP STA (11:46)
--- NOTE | 2019-06-26 11:50 | ED Physician Documentation ---
PD HPI CHEST PAIN - Stated complaint Stated Complaint: GENERAL WEAKNESS - Chief complaint Chief Complaint: Cardiac - History obtained from History obtained from: Patient, EMS - History of Present Illness Timing - onset: Today (This is a very pleasant 89-year-old woman presents by ambulance. Starting fairly suddenly over the last few hours she is developed headache, upper anterior chest pain that is nonradiating. There is no associated shortness of breath. She says she feels like she is choking. She is had that sensation before, also the headache before. The cause is not necessarily clear. She also has a recent UTI being treated with nitrofurantoin. She has a history of hypertension, syncope. Syncope has been worked up in the past with echo, stress test etc. No pertinent positive findings. She has been seen a couple times over the last week, potentially related to anxiety. 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: Other : Chronic bladder infection Psych: Depression, Anxiety Musculoskeletal: Osteoarthritis, Fibromyalgia Derm: None - Past Surgical History General: Cholecystectomy, Appendectomy, Colonoscopy, EGD Ortho: Hip replacement, Shoulder arthroplasty, Carpal Tunnel surgery, Other /INCOME TAX ADMINISTRATOR: Hysterectomy, Oophrectomy, Other HEENT: Tonsil/Adenoidectomy - Present Medications Home Medications: Ambulatory Orders Medication Instructions Recorded Confirmed Amlodipine Besylate 10 mg PO DAILY 08/26/18 06/26/19 Nitrofurantoin Macrocrystal 100 mg PO DAILY 08/26/18 06/26/19 [Nitrofurantoin] Famotidine 20 mg PO DAILY 06/26/19 06/26/19 Potassium Gluconate 99 mg PO DAILY 06/26/19 06/26/19 lisinopriL [Lisinopril] 10 mg PO BID 06/26/19 06/26/19 - Allergies Allergies/Adverse Reactions: Allergies Allergy/AdvReac Type Severity Reaction Status Date / Time adhesive tape Allergy Unknown Verified 06/26/19 11:41 azithromycin [From Zithromax] Allergy Unknown Verified 06/26/19 11:41 benzonatate Allergy Unknown Verified 06/26/19 11:41 [From Tessalon Perles] metformin [From Glucophage] Allergy Unknown Verified 06/26/19 11:41 olmesartan [From Benicar] Allergy Unknown Verified 06/26/19 11:41 - Social History Does the pt smoke?: No Smoking Status: Never smoker Does the pt drink ETOH?: No - Family History Family history: reports: Non contributory PD ED PE NORMAL - Vitals Vital signs reviewed: Yes - General General: Alert and oriented X 3, No acute distress, Other (She appears visibly weak, she is just laying in bed and not very cooperative. She seems to have very low energy. She does follow commands though and there is no asymmetry to her neurologic exam.) - HEENT HEENT: PERRL, EOMI, Pharynx benign - Neck Neck: Supple, no meningeal sign, No bony TTP - Cardiac Cardiac: RRR (With frequent extrasystoles), No murmur - Respiratory Respiratory: No respiratory distress, Clear bilaterally - Abdomen Abdomen: Normal bowel sounds, Soft, Non tender - Back Back: No CVA TTP, No spinal TTP - Derm Derm: Normal color, Warm and dry - Extremities Extremities: No edema, No calf tenderness / cord - Neuro Neuro: Alert and oriented X 3, Normal speech Eye Opening: Spontaneous Motor: Obeys Commands Verbal: Oriented GCS Score: 15 - Psych Psych: Normal mood, Normal affect Results - Vitals Vitals: Vital Signs - 24 hr 06/26/19 06/26/19 06/26/19 11:41 11:52 12:52 Temperature 36.4 C L Heart Rate 97 105 H 102 H Respiratory 18 14 14 Rate Blood Pressure 178/95 H 184/70 H 134/71 H O2 Saturation 99 100 98 Oxygen O2 Source Room air - EKG (time done) 1144 Rate: Rate (enter#) (68) Rhythm: NSR (With PACs) Intervals: LBBB Compare to prior EKG: Unchanged from prior EKG Computer interpretation: Agree with computer - Labs Labs: Laboratory Tests 02/15/20 02/15/20 02/15/20 11:59 11:59 11:59 WBC 5.6 RBC 5.46 H Hgb 15.9 Hct 46.7 MCV 85.5 MCH 29.1 MCHC 34.0 RDW 13.8 Plt Count 242 MPV 9.4 Neut # (Auto) 2.9 Lymph # (Auto) 2.2 [place] # (Auto) 0.4 Eos # (Auto) 0.0 Baso # (Auto) 0.1 Absolute Nucleated RBC 0.00 Nucleated RBC % 0.0 VBG pH VBG pCO2 VBG pO2 VBG HCO3 VBG Total CO2 VBG O2 Saturation VBG Base Excess Sodium 140 Potassium 3.6 Chloride 105 Carbon Dioxide 22 Anion Gap 13.0 BUN 17 Creatinine 0.6 Estimated GFR (MDRD) 94 Glucose 114 H Calcium 9.8 Phosphorus 2.3 L Magnesium 2.4 Total Bilirubin 1.0 AST 50 H ALT 75 H Alkaline Phosphatase 91 Troponin I High Sens 6.7 Total Protein 7.6 Albumin 4.3 Globulin 3.3 Albumin/Globulin Ratio 1.3 Lipase 32 Urine Color Urine Clarity Urine pH Ur Specific [place] Urine Protein Urine Glucose (UA) Urine Ketones Urine Occult Blood Urine Nitrite Urine Bilirubin Urine Urobilinogen Ur Leukocyte Esterase Ur Microscopic Review Urine Culture Comments 06/26/19 06/26/19 11:59 12:09 WBC RBC Hgb Hct MCV MCH MCHC RDW Plt Count MPV Neut # (Auto) Lymph # (Auto) [place] # (Auto) Eos # (Auto) Baso # (Auto) Absolute Nucleated RBC Nucleated RBC % VBG pH 7.416 H VBG pCO2 36.6 L VBG pO2 35.1 VBG HCO3 23.0 VBG Total CO2 24.1 VBG O2 Saturation 73.0 VBG Base Excess -1.0 Sodium Potassium Chloride Carbon Dioxide Anion Gap BUN Creatinine Estimated GFR (MDRD) Glucose Calcium Phosphorus Magnesium Total Bilirubin AST ALT Alkaline Phosphatase Troponin I High Sens Total Protein Albumin Globulin Albumin/Globulin Ratio Lipase Urine Color YELLOW Urine Clarity CLEAR Urine pH 7.0 Ur Specific [place] 1.010 Urine Protein NEGATIVE Urine Glucose (UA) NEGATIVE Urine Ketones TRACE Urine Occult Blood NEGATIVE Urine Nitrite NEGATIVE Urine Bilirubin NEGATIVE Urine Urobilinogen 0.2 (NORMAL) Ur Leukocyte Esterase NEGATIVE Ur Microscopic Review NOT INDICATED Urine Culture Comments NOT INDICATED PD MEDICAL DECISION MAKING - ED course ED course: This is an 89-year-old woman who presents with generalized weakness, upper anterior chest pain that feels like she is choking, report made from the paramedics that she had a 20 point difference in her upper extremity blood pressures. Chart reviewed with no change in her CTA the other day from prior, also had modest transaminitis. She denies abdominal pain and has no abdominal tenderness. There is no asymmetry to her neurologic exam. CT angiography of the chest was without evidence of dissection and no change in her head CT. The cause of her symptoms is unclear. Could be psychiatric/anxiety, but given the new chest pain probably needs a more formal rule out given her age. Departure - Departure Disposition: ED Place in Observation Clinical Impression: Atypical chest pain, Headache Condition: Stable
[2019-06-26] MEDS ORDERED: IOVERSOL 320 100 ML VIAL IVP ONE ×2 (11:55→12:57)
[2019-06-26 12:10] LABS: VBG PCO2 36.6 mmHg (41-51); VBG PH 7.416 (7.31-7.41); VBG PO2 35.1 mmHg (25-47); VBG TOTAL CO2 24.1 mmol/L (24-29)
[2019-06-26 12:11] LABS: BASOPHILS # (AUTO) 0.1 10^3/uL (0.0-0.1); BASOPHILS % (AUTO) 0.9 %; EOSINOPHILS % (AUTO) 0.7 %; HGB - HEMOGLOBIN 15.9 g/dL (12.0-16.0); LYMPHOCYTES # (AUTO) 2.2 10^3/uL (1.5-3.5); LYMPHOCYTES % (AUTO) 39.9 %; MEAN CORPUSCULAR HEMOGLOBIN 29.1 pg (27.0-31.0); MEAN CORPUSCULAR VOLUME 85.5 fL (81.0-99.0); MEAN PLATELET VOLUME 9.4 fL (7.9-10.8); MONOCYTES # (AUTO) 0.4 10^3/uL (0.0-1.0); MONOCYTES % (AUTO) 7.5 %; NEUTROPHILS # (AUTO) 2.9 10^3/uL (1.5-6.6); NEUTROPHILS % (AUTO) 50.8 %; PLT - PLATELET COUNT 242 10^3/uL (130-450); RED BLOOD COUNT 5.46 10^6/uL (4.20-5.40); RED CELL DISTRIBUTION WIDTH 13.8 % (12.0-15.0); WHITE BLOOD COUNT 5.6 x10^3/uL (4.8-10.8)
[2019-06-26 12:25] LABS: ALBUMIN 4.3 g/dL (3.2-5.5); ALBUMIN/GLOBULIN RATIO 1.3 (1.0-2.2); CALCIUM 9.8 mg/dL (8.5-10.3); CREATININE 0.6 mg/dL (0.4-1.0); MAGNESIUM 2.4 mg/dL (1.7-2.8); PHOSPHORUS 2.3 mg/dL (2.5-4.6); TOTAL PROTEIN 7.6 g/dL (6.7-8.2)
[2019-06-26 12:26] LABS: BILIRUBIN,URINE NEGATIVE (NEGATIVE); GLUCOSE, URINE (UA) NEGATIVE (NEGATIVE); KETONES,URINE (UA) TRACE mg/dL (NEGATIVE); LEUKOCYTE ESTERASE, URINE NEGATIVE (NEGATIVE); NITRITE,URINE NEGATIVE (NEGATIVE); OCCULT BLOOD,URINE NEGATIVE (NEGATIVE); PROTEIN,URINE NEGATIVE (NEGATIVE); UROBILINOGEN,URINE 0.2 (NORMAL) E.U./dL (NORMAL)
[2019-06-26] MEDS ORDERED: LIDOCAINE VISCOUS 2% 15 ML UDC MM STA (12:46)
[2019-06-26] MEDS ORDERED: MAG HYDROX/AL HYDROX/SIMETH 30 ML UDC PO STA (12:46)
[2019-06-26 12:58] LABS: CLARITY,URINE CLEAR (CLEAR)
[2019-06-26] MEDS ORDERED: ASPIRIN CHEW 81 MG TABLET PO STA (12:58)
--- NOTE | 2019-06-26 13:02 | CT Report ---
Reason: chest pain Procedure Date: 06/26/2019 Accession Number: [id number] / [id number] Procedure: CT - ANGIO CHEST W/WO CPT Code: Final Report FULL RESULT: EXAM: CT ANGIOGRAM CHEST EXAM DATE: 06/26/2019 12:45 PM. CLINICAL HISTORY: Chest pain. COMPARISON: CHEST W/O 12/04/2017 1:27 PM. TECHNIQUE: Routine helical imaging was performed through the chest in the pulmonary arterial phase. IV Contrast: OPTIRAY 320. Reconstructions: Coronal 3-D MIP reconstructions. Sagittal and coronal. In accordance with CT protocol optimization, one or more of the following dose reduction techniques were utilized for this exam: automated exposure control, adjustment of mA and/or KV based on patient size, or use of iterative reconstructive technique. FINDINGS: Vascular Structures: Noncontrast imaging demonstrates no evidence of acute intramural hematoma. No aneurysm. There are scattered atheromatous calcifications of the aorta. There is no evidence of aortic dissection. There is thoracic aorta tortuosity. The visualized great vessels, pulmonary arteries, and upper mesenteric branch vessels demonstrate no acute abnormalities. Lungs/Pleura: There is no consolidation or effusion. No suspicious noncalcified nodules are seen. There is no evidence of subpleural reticulation or architectural distortion. No central airway abnormalities. No pneumothorax. Mediastinum: Normal. No cardiac enlargement or adenopathy. Upper Abdomen: Unremarkable. Other: None. IMPRESSION: Negative chest CT angiogram. No aneurysm or dissection. RADIA
--- NOTE | 2019-06-26 13:04 | CT Report ---
Reason: headache Procedure Date: 06/26/2019 Accession Number: [id number] / [id number] Procedure: CT - HEAD WO CPT Code: Final Report FULL RESULT: EXAM: CT HEAD EXAM DATE: 06/26/2019 12:45 PM. CLINICAL HISTORY: Headache. COMPARISON: HEAD W/O 06/23/2019 8:11 AM. TECHNIQUE: Multiaxial CT images were obtained from the foramen magnum to the vertex. Reformats: Sagittal and coronal. IV contrast: None. In accordance with CT protocol optimization, one or more of the following dose reduction techniques were utilized for this exam: automated exposure control, adjustment of mA and/or KV based on patient size, or use of iterative reconstructive technique. FINDINGS: Parenchyma: There is an ovoid hypodensity in the left thalamus measuring 10 x 5 mm unchanged. There is mild to moderate periventricular white matter hypodensity. Negative for acute hemorrhage. No midline shift. Extraaxial Spaces: Normal for age. No subdural or epidural collections identified. Ventricles: Normal in size and position. Sinuses and Orbits: Imaged paranasal sinuses, orbits, and mastoids show no significant abnormality. Bones: Negative for acute fracture. Other: None. IMPRESSION: 1. Negative for acute hemorrhage and mass-effect. 2. 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 RADIA
[2019-06-26] MEDS ORDERED: ACETAMINOPHEN 325 MG TABLET PO STA (13:28)
[2019-06-26] MEDS ORDERED: ACETAMINOPHEN 325 MG TABLET PO PRN (13:47)
[2019-06-26] MEDS ORDERED: SODIUM CHLORIDE FLUSH 0.9% 10 ML SYRINGE IVP PRN (13:47)
[2019-06-26] MEDS ORDERED: DEXTROSE 5%-0.9% NACL 1,000 ML IV SCH ×2 (14:00→18:26)
--- NOTE | 2019-06-26 14:28 | PHARMACY PROGRESS NOTE ---
- Best Possible Medication History Admit Date and Time: 06/26/19 1346 Processed by: Pharmacy Medication History completed: Yes Patient Interview: Completed Secondary Source(s): Other family member, Physician records, Pharmacy records As the person ultimately responsible for medication therapy, providers are able to order a medication from an existing home medication list in [facility] via the "Reconcile Routine" prior to Confirmation of that medication by manager sales support. Such practice is discouraged except when the physician, in their clinical judgment, deems that a medical need exists for a medication without regard to previous use.
[2019-06-26] MEDS: SODIUM CHLORIDE FLUSH 0.9% 10 ML SYRINGE IVP SCH (16:24)
[2019-06-26] MEDS ORDERED: NITROGLYCERIN SL 0.4 MG TABLET SL PRN (17:26)
--- NOTE | 2019-06-26 17:53 | HISTORY & PHYSICAL EXAMINATION ---
DATE OF SERVICE: 06/26/2019 Physician: Juani Arrington MD HISTORY OF PRESENT ILLNESS: This is an 89-year-old white female with a history of hypertension. She apparently also has PTSD and states that remotely she had "panic attacks." The patient states that these attacks have recurred now over the past several month happening at least 4 times. She was once taken to [facility] and her final diagnosis was that they did not know what caused one of these attacks. The next event occurred and she presented to this Emergency Room and a CT workup was done for stroke-like symptoms causing severe overall weakness that was nonfocal. The CT of the head was normal. She had a third event occurring here several days ago and was brought to this Emergency Room again. The events of that third event are interesting, in that she reports waking up and getting her typical feeling of a headache and confusion and with that, she drove herself to her PCP's office. While there, she had concern that she was having a stroke and therefore an ambulance brought her from the PCP's office to the ER. The stroke workup was again done including a CTA brain that time, which was also unremarkable. Today, she had a fourth episode and is being placed in Observation for further workup. This fourth episode was similar to the past, in that she starts to "get a headache," then gets confused and then becomes overall weak in the entire body and slumps to the ground but does not have complete syncope. The confusion and body weakness lasts for hours. On one event the recovery occurred after IV hydration and the patient reported to the ER doctor that "this was one of her typical panic attacks." The diagnosis of panic attack was given to her possibly at [facility]. When asked if she is really panicking with feelings of impending doom, she does not admit to this. She can only state that she has a headache and becomes confused. She then does admit that she has poor recollection of the entire event during the confusion. She was told to not drive any more and she has kept to this restriction. She does have a Lifeline. She called her daughter today when the event was starting to occur and the daughter told her to try to ignore it or did not believe her mother, because there had been workup done for this already and nothing was found. The patient stated that something is not right because there have been four of these events in the last month and it has not been diagnosed. The patient finds no pattern as to when they occur; they do not necessarily follow any part of the day or any certain activity that she is doing. With the last 3 episodes, she had a choking feeling in her sternal notch, which was severe and radiated down to her chest. Because of this part of the complaints, she is being placed in Observation to evaluate new chest pain. PAST MEDICAL HISTORY: PTSD, hypertension, chronic left bundle branch block. ALLERGIES: ADHESIVE TAPE, AZITHROMYCIN, BENZONATATE, METFORMIN AND OLMESARTAN. MEDICATIONS: 1. Amlodipine 10 mg daily. 2. Famotidine 20 mg daily. 3. Lisinopril 10 mg b.i.d. 4. Nitrofurantoin 100 mg daily for a recent UTI. 5. Potassium daily. SOCIAL HISTORY: She is nonsmoker, drinks no alcohol. No illicit drug use. She lives alone. She has refused Meals on Wheels in the past. She states her daughter brings her food and the patient has also made her own shopping trips and does make easy meal preparations. The patient uses a cane or a walker around her house occasionally. The patient has a neighbor who is a friend and helps her as well. REVIEW OF SYSTEMS: In the Emergency Room today, she got Ativan and a GI cocktail, which helped the headache and the choking sensation. The patient remembers having a stress test remotely; the results are not available. The patient states she is compliant with her medications. She denies GERD, leg edema, dysuria, fever or diarrhea. The daughter arrived later and filled in some past history: the patient started to see Neurologist Dr Makeda Martinez in [place] and a CT of the head was ordered and is pending next week. A comprehensive review of systems was performed and the pertinent positives are listed; the rest are negative. FAMILY HISTORY: No inherited diseases. PHYSICAL EXAMINATION: GENERAL: Elderly white female who appears younger than her age. She is in no distress. VITAL SIGNS: Blood pressure 130/70, heart rate 60-90 in sinus rhythm, afebrile, room air saturation 95%. HEENT: Unremarkable. She has good dentition and moist oral mucosa. NECK: Without JVD. No carotid bruits. CHEST: Clear. HEART: Normal heart sounds. No murmurs. No gallop or heave. ABDOMEN: Soft, positive bowel sounds, nontender. No organomegaly. EXTREMITIES: No clubbing, cyanosis or edema. NEUROLOGIC: Grossly intact. LABORATORY DATA: Normal electrolytes. Normal BUN and creatinine. AST 50, ALT 75, bilirubin normal at 1.0. Lipase normal at 32. Troponin high sensitivities are normal at 6.7 and 2 hours later at 7.1. CBC is normal. No INR was done. Urinalysis is normal. Blood gas venous had a pH of 7.41. DIAGNOSTIC DATA: Head CT was done that was again unremarkable and similar to the previous ones. She had a chest and thorax CTA done since there was question of a 20 mm difference in systolic blood pressure in the left and right arms measured in the ER. The CT of the chest showed no aneurysm or dissection and normal pulmonary and cardiac findings. EKG: Normal sinus rhythm, left bundle branch block, which is old. IMPRESSION/DIAGNOSES 1. Chest pain (the choking feeling she senses in the sternal area). 2. Weakness with headache. 3. Confusion. 4. Elevated liver function tests. 5. Left bundle branch block. PLAN: 1. Place the patient in Observation on telemetry. Cycle troponins x3. 2. Obtain an Echo to evaluate for resting wall motion abnormalities. 3. Order neuro checks to assess if she has any prodrome or if any of her symptoms are recurring while here and then get careful vital signs during an event. 4. Check orthostatic vital signs to determine if this could be a type of syncope or near syncope with long sequelae of weakness afterward. 5. The patient should also undergo Neurology evaluation as to whether these could be some type of atypical seizures, such as partial complex seizure with subsequent postictal state causing the confusion and weakness. I will reach out to her Neurologist. 6. Follow her liver function tests, check GGT. I discussed this plan with the daughter at bedside when she arrived later in the day. CODE STATUS: FULL CODE. DEEP VENOUS THROMBOSIS PROPHYLAXIS: SCDs. ATTESTATION: The patient is expected to be discharged or transferred to another facility within 96 hours: Yes. TD: 06/26/2019 17:21 TO
[2019-06-26] MEDS: lisinopriL 5 MG TABLET PO SCH (21:04)
[2019-06-27] MEDS: SODIUM CHLORIDE FLUSH 0.9% 10 ML SYRINGE IVP SCH ×2 (00:16→09:35)
[2019-06-27 05:26] LABS: ALBUMIN 3.3 g/dL (3.2-5.5); ALBUMIN/GLOBULIN RATIO 1.3 (1.0-2.2); BILIRUBIN,TOTAL 0.8 mg/dL (0.2-1.0); CALCIUM 8.7 mg/dL (8.5-10.3); CREATININE 0.7 mg/dL (0.4-1.0); MAGNESIUM 2.1 mg/dL (1.7-2.8); TOTAL PROTEIN 5.8 g/dL (6.7-8.2)
[2019-06-27] MEDS ORDERED: POTASSIUM CHLORIDE 20 MEQ TABLET PO SCH (08:00)
[2019-06-27 08:11] VITALS: BP 143/66
--- NOTE | 2019-06-27 08:30 | Discharge Plan ---
Discharge Plan Problem Reviewed?: Yes Disposition: Home, Self Care Condition: Stable Diet: Low Sodium Activity Restrictions: Activity as Tolerated Shower Restrictions: No Driving Restrictions: Yes Health Concerns: You were observed overnight to check for a cardiac abnormality, like a heart attack, because of the choking feeling that you get with your other symptoms. The blood tests have shown you had no heart attack. As we discussed, you need Neurology follow-up for recurrence of headaches followed by severe weakness and confusion, since these could be seizures. I have tried 4 times to reach the covering Neurologist for Dr. Karyna Martinez, to describe your recent history and work-ups, and there has been no call back from the Neurologist. Please call Dr. Karyna Martinez for an SANDER appointment. A summary of this hospitalization will go to her as well as your PCP. Resume all your usual medications, But it is advised to avoid sedatives or narcotics which could be adding to the weakness and confusion. Plan of Treatment: As above AND you should get assistance at home for care and medication management, since these symptoms are disabling and you should not be alone. Care Goals: Improvement in your symptoms, and establishing the diagnosis for stabilization are the goals. Assessment: Patient and daughter understand. Additional Instructions or Follow Up instructions: If you have new or worsening symptoms, call your Neurologist or your PCP or come to the ER. No Smoking: If you smoke, Please STOP! Call for help. Follow-up with: Trena Gunn PA-C [Primary Care Provider] -
[2019-06-27] MEDS ORDERED: NITROFURANTOIN MACRO 100 MG CAPSULE PO SCH (09:00)
[2019-06-27] MEDS ORDERED: amLODIPine 5 MG TABLET PO SCH (09:00)
[2019-06-27] MEDS ORDERED: FAMOTIDINE 20 MG TABLET PO SCH (09:00)
[2019-06-27] MEDS: lisinopriL 5 MG TABLET PO SCH (09:29)
--- NOTE | 2019-06-27 11:53 | DISCHARGE SUMMARY ---
Discharge Summary Admit Date: 06/26/19 Discharge Date: 06/27/19 Discharging Provider: Dr Juani Arrington Primary Care Provider: TRACIE Gunn, and Dr Karyna Martinez (Neurology) Code Status: Attempt Resuscitation Condition at Discharge: Stable Discharge Disposition: 01 Home, Self Care - DIAGNOSES Admission Diagnoses: 1) Atypical chest pain (choking sensation in sternal notch) 2) Weakness 3) Headache 4) Confusion 5) Elevated LFTs 6) LBBB, old Discharge Diagnoses with Status of Each Condition: See below - HPI History of Present Illness: This is an 89-year-old white female who has a history of hypertension and PTSD. She had multiple admissions in 2016 to evaluate potential syncope. The symptoms resolved but have started to recur again 1 month ago. She gets a sudden headache which is followed by a choking sensation in her sternal notch, then overall weakness, she lays down, never has syncope, but is unable to get up or even lift her arms due to weakness and she is confused at this time. 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 Patient has started to see a Neurologist, Dr. Karyna Martinez, who ordered a follow-up CT which would be pending on Jul 02. Since that visit the patient has had 3 more episodes in 1 week and presented with each to our ER, and has had several repeat head CT scans: With the first one here she had work-up for stroke with head CT which w as normal, with the second event she had CT and CTA of the brain which were normal. With this event a head CT was unchanged and there was note that choking in the upper chest is part of the symptoms and she is being admitted to Observation for a cardiac work-up. - HOSPITAL COURSE Hospital Course: 1) Atypical chest pain (choking sensation in sternal notch) Patient has an old LBBB on EKG therefore this was not helpful to evaluate an OH. The patient was placed in Observation status on telemetry and underwent serial troponins which were all normal. She underwent a resting Echo to evaluate LV and RV function and the findings were also normal with LVEF 60-65%. He also had a CTA of the chest (due to question of 20 mmHg difference between blood pressure in the upper arms) and this showed no aortic dissection or aneurysm and no cardiopulmonary disease. 2) Weakness The patient has had these recurrent episodes which start with a headache then gets generalized weakness which lasts for several hours and has accompanying confusion. Orthostatic checks were done here that were within normal limits. She was able to ambulate. She was discharged in stable condition with recommendations to have SANDER follow-up with her Neurologist for work-up of possible seizure or other reasons for this combination of symptoms that are yet undiagnosed. I reached Dr Martinez's covering Neurologist, Dr. Miller, at discharge on Friday06/27/2019 that this patient requires SANDER follow-up appointment and that several CTs of the head have already been done, the CT appointment on 07/02/2019 does not need to be kept. He said he would pass this on to Dr Martinez. Since the patient lives alone and 1 daughter visits, it was advised that the patient have family or hired caregivers to stay with her to help her through these symptoms until they are diagnosed and treated. The daughter will look into an assisted living facility for her mother. The patient was also instructe d that she is not permitted to drive a vehicle because of these episodes. 3) Headache As in #2. 4) Confusion As in #2, the confusion may be her post-ictal state. 5) Elevated LFTs She has a benign abdominal exam and no GI complaints. The LFts are chronically mildly elevated an outpatient work-up has already been recommended in the past. 6) LBBB Chronic finding. 7) HTN She was kept on her Amlodipine and Lisinopril while here. - ALLERGIES Allergies/Adverse Reactions: Allergies Allergy/AdvReac Type Severity Reaction Status Date / Time No Known Drug Allergies Allergy Verified 06/26/19 17:52 - MEDICATIONS Home Medications: Ambulatory Orders Medication Instructions Recorded Confirmed Amlodipine Besylate 10 mg PO DAILY 08/26/18 06/26/19 Nitrofurantoin Macrocrystal 100 mg PO DAILY 08/26/18 06/26/19 [Nitrofurantoin] Famotidine 20 mg PO DAILY 06/26/19 06/26/19 Potassium Gluconate 99 mg PO DAILY 06/26/19 06/26/19 lisinopriL [Lisinopril] 10 mg PO BID 06/26/19 06/26/19 - PHYSICAL EXAM AT DISCHARGE General Appearance: positive: No acute distress, Alert Eyes Bilateral: positive: Normal inspection, EOMI ENT: positive: ENT inspection nml, Other (Patient of right facial droop at rest, however her smile is symmetrical) Neck: positive: No JVD, Other (No carotid bruits) Respiratory: positive: No respiratory distress, Breath sounds nml Cardiovascular: positive: Regular rate & rhythm, No murmur Abdomen: positive: Non-tender, No distention Skin: positive: Color nml Neurologic/Psychiatric: positive: Oriented x3, Other (Non-focal exam. Memory is not normal.) - LABS Result Diagrams: 06/26/19 11:59 06/27/19 05:00 - DIAGNOSTIC IMAGING Diagnostic Imaging Results: Final report reviewed - FOLLOW UP Follow Up: See Dr Karyna BOUCHER in neurology follow-up. See PCP as needed. - TIME SPENT Time Spent in Discharge (Minutes): 60
== END 2019-06-27 12:53 | disposition home or self-care (01) ==
LOC: EDUNIT# → ED 11:38 → MS2 13:46
PROVIDERS: ADMIT Internal Medicine; ATTEND Internal Medicine
DX: R07.89 Other chest pain (principal); R09.89 Other specified symptoms and signs involving the circulatory and respiratory systems; I44.7 Left bundle-branch block, unspecified; R53.1 Weakness; R41.0 Disorientation, unspecified; R51 Headache; R79.89 Other specified abnormal findings of blood chemistry; I10 Essential (primary) hypertension; F43.10 Post-traumatic stress disorder, unspecified; Z86.73 Personal history of transient ischemic attack (TIA), and cerebral infarction without residual deficits; R41.3 Other amnesia
CPT/HCPCS: 36415; 70450; 71275; 80053; 81003; 82803; 82977; 83690; 83735; 84100; 84484; 85025; 93005; 93306; 96374; 99284; 99285; A9270; G0378; J2060; Q9967; 81001; 87086